=== PATIENT | female | born 1970 | race Caucasian/White ===

== ENCOUNTER 2016-03-16 06:10 | Day surgery (SDC) | payer MEDICARE, MEDICAID ==
[~2016-03-16] VITALS: Ht 154.9 cm; Wt 77.4 kg
[2016-03-16] VITALS (8 sets, daily range): BP systolic 119–134; BP diastolic 66–88; PULSE 74–91; TEMP 97–98
[~2016-03-16 06:10] MED LIST: ABILIFY2 MG PO; ABILIFY5 MG PO; ACZONE TP; AMBIEN 10MG10 MG PO; AMOXICILLIN 8751 TAB PO; BACTRIM DS 8001 TAB PO; BACTRIM PO; BUSPIRONE HCL7.5 MG PO; BYSTOLIC2.5 MG PO; BYSTOLIC5 MG PO; CEFTIN 250250 MG/TAB PO; CELEXA 20MG20 MG/TA1 PO; CELEXA 20MG20 MG/TAB PO; CELEXA20 MG PO; CELLCEPT 5500 MG/TAB PO; CEPHALEXIN500 M1 PO; CIPRO 250MG TA250 MG PO; CLEOCIN HCL300 MG PO; CLOBETASOL0.051 TP; CYCLOSPORINE100 M1 PO; DAPSONE 100MG100 MG PO; DAPSONE 25MG TA25 MG PO; DEXILANT60 MG; DEXILANT60 MG PO; DIFLUCAN150 MG PO; DILAUDID 4MG TAB4 MG PO; DOXYCYCLINE 10100 MG PO; FOSAMAX 70MG TA70 MG PO; GABAPENTIN300 M1 PO; HALCION0.25 MG PO; HUMIRA40 MG/0.1 SC; HYDROCODONE/APAP PO; IRON325 MG PO; LEVAQUIN 750MG750 M1 PO; LEXAPRO20 MG PO; LORTAB 10/500 51 TAB PO; LORTAB 5/500 501 TAB PO; METHOTREXA2.5 MG/TAB PO; NATURAL IRON65 MG PO; NEURONTIN300 MG/CAP PO; NEXIUM 40MG40 MG PO; NORCO 325 MG-101 TAB PO; NORCO 325 MG-51 TAB; NORCO 325 MG-51 TAB PO; NORVASC2.5 MG PO; OSCAL 500MG/VI500 MG PO; PHENERGAN 25 TA25 MG PO; PHENERGAN25 MG RC; PREDNISONE 5MG5 MG PO; PREDNISONE10 MG PO; PREDNISONE20 MG PO; PRIL40 PO; PRILOSEC 20MG20 MG PO; PROAMATINE10 MG PO; SENNA8.6 MG PO; SOMA 350MG350 MG/TAB PO; TETRACYCLINE; TRAMADOL50 MG PO; TUSS PO; VITAMIN D31000 IU PO; XANAX 0.5MG0.5 MG PO; XANAX0.5 MG PO; ZOFRAN 4MG T4 MG/TAB PO; ZOFRAN8 MG PO; [UNRECOGNIZED DRUG - OTHER]; [UNRECOGNIZED DRUG - OTHER] INJ
[2016-03-16] MEDS ORDERED: PREDNISONE10 MG PO (07:58)
[2016-03-16] MEDS ORDERED: PRILOSEC 20MG20 MG PO (07:59)
[2016-03-16] MEDS ORDERED: METHOTREXA2.5 MG/TAB PO (08:06)
[2016-03-16] MEDS ORDERED: CIPRO 250MG TA250 MG PO (08:12)
[2016-03-16] MEDS ORDERED: NORCO 325 MG-51 TAB PO (09:29)
[2016-03-16] MEDS ORDERED: SENOKOT S 50 MG1 TAB PO (09:30)
[2016-03-16] MEDS ORDERED: PYRIDIUM 100MG100 MG PO (09:31)
== END 2016-03-16 13:05 | disposition home or self-care (01) ==
LOC: SDCO 06:10
DX: N20.0 Calculus of kidney (principal); R31.0 Gross hematuria; R93.41 Abnormal radiologic findings on diagnostic imaging of renal pelvis, ureter, or bladder; F17.210 Nicotine dependence, cigarettes, uncomplicated
CPT/HCPCS: C1769; C2617; J0690; J1100; J1720; J2270; J2405; J2704; J3010; J7120; Q9967

== ENCOUNTER 2016-03-21 14:59 | Emergency (ER) | payer MEDICARE, MEDICAID ==
[~2016-03-21] VITALS: Ht 154.9 cm; Wt 77.3 kg
[~2016-03-21 14:59] MED LIST changes: +PYRIDIUM 100MG100 MG PO; +SENOKOT S 50 MG1 TAB PO
[2016-03-21 15:02] VITALS: BP 131/98; TEMP 98.5
[2016-03-21] MEDS ORDERED: NORCO 325 MG-101 TAB PO ×2 (15:12→15:20)
[2016-03-21] MEDS ORDERED: PRILOSEC 20MG20 MG PO (15:20)
[2016-03-21] MEDS ORDERED: ABILIFY2 MG PO (15:20)
[2016-03-21] MEDS ORDERED: NEURONTIN300 MG/CAP PO (15:20)
[2016-03-21] MEDS ORDERED: AMBIEN 10MG10 MG PO (15:21)
[2016-03-21] MEDS ORDERED: XANAX 0.5MG0.5 MG PO (15:21)
[2016-03-21] MEDS ORDERED: BUSPIRONE HCL7.5 MG PO (15:21)
[2016-03-21] MEDS ORDERED: METHOTREXA2.5 MG/TAB PO (15:22)
[2016-03-21] MEDS ORDERED: LEXAPRO20 MG PO (15:22)
[2016-03-21] MEDS ORDERED: HUMIRA40 MG/0.1 SC (15:22)
[2016-03-21] MEDS ORDERED: BYSTOLIC2.5 MG PO (15:22)
[2016-03-21] MEDS ORDERED: CIPRO 250MG TA250 MG PO (15:23)
[2016-03-21] MEDS ORDERED: PREDNISONE20 MG PO (15:23)
[2016-03-21 16:24] VITALS: PULSE 98
== END 2016-03-21 16:24 | disposition home or self-care (01) ==
LOC: COL.ER 14:59
DX: R10.31 Right lower quadrant pain (principal); M79.604 Pain in right leg
CPT/HCPCS: J1170; J2550

== ENCOUNTER 2016-03-26 17:01 | Inpatient (IN) | payer MEDICARE, MEDICAID ==
[~2016-03-26] VITALS: Ht 154.9 cm; Wt 86.1 kg
[2016-03-26] VITALS (54 sets, daily range): BP systolic 103–112; BP diastolic 60–68; PULSE 86–95; TEMP 98.1–98.4; O2SAT 73–100
[2016-03-26 17:43] LABS: MEAN CELL VOLUME 123 fl (80.0-100.0); MEAN CORPUSCULAR HEMOGLOBIN 41 pg (27.0-31.0); MEAN CORPUSCULAR HGB CONC 34 g/dl (33.0-37.0); PLATELET COUNT 347 K/mm3 (130-400); RED BLOOD COUNT 2.91 M/mm3 (4.10-5.30); REDCELL DISTRIBUTION WIDTH-CV 19.4 % (11.5-14.5)
[2016-03-26 17:45] LABS: HEMATOCRIT 35.8 % (37.0-47.0)
[2016-03-26 17:46] LABS: ADD PATHOLOGY DIFF REVIEW NO; WHITE BLOOD COUNT 30.6 K/mm3 (4.8-10.8)
[2016-03-26 17:53] LABS: ADJUSTED CALCIUM 9.1 mg/dL (8.4-10.2); ALBUMIN 4.7 gm/dL (3.5-5.0); BILIRUBIN,TOTAL 1.3 mg/dL (0.0-1.0); CALCIUM 9.7 mg/dL (8.4-10.2); CREATININE, serum 1.05 mg/dL (0.52-1.25); POTASSIUM 5.1 mmol/L (3.4-5.0); TOTAL PROTEIN 8.2 gm/dL (6.4-8.2)
[2016-03-26 18:11] LABS: INFLUENZA B NEGATIVE
[2016-03-26 18:14] LABS: BAND 22 % (0-10); NEUTROPHILS 71 % (42.0-75.2); PLATELET ESTIMATE NORMAL (NORMAL); TOTAL CELLS COUNTED 100
[2016-03-26 18:15] LABS: ANISOCYTOSIS 1+
[2016-03-26 18:46] LABS: PH 7 (5-8); SQUAMOUS EPITHELIAL 0-2 /hpf; URINE APPEARANCE Cloudy; URINE BACTERIA Rare /hpf; URINE BILIRUBIN Negative (NEGATIVE); URINE BLOOD 3+ (NEGATIVE); URINE COLOR Amber; URINE GLUCOSE Negative (NEGATIVE); URINE KETONE Trace (NEGATIVE); URINE UROBILINOGEN Negative (NEGATIVE); URINE WBC >50 /hpf
[2016-03-26] MEDS ORDERED: PREDNISONE20 MG PO (19:56)
[2016-03-27] VITALS (989 sets, daily range): BP systolic 105–125; BP diastolic 64–80; PULSE 85–115; TEMP 97.1–98.2; O2SAT 75–100
[2016-03-27 05:54] LABS: MEAN CELL VOLUME 124 fl (80.0-100.0); MEAN CORPUSCULAR HGB CONC 34 g/dl (33.0-37.0); MEAN PLATELET VOLUME 9.1 fl (7.4-10.4); PLATELET COUNT 287 K/mm3 (130-400); RED BLOOD COUNT 2.28 M/mm3 (4.10-5.30); REDCELL DISTRIBUTION WIDTH-CV 19.5 % (11.5-14.5)
[2016-03-27 06:01] LABS: HEMATOCRIT 28.3 % (37.0-47.0); HEMOGLOBIN 9.5 g/dl (12.5-16.0); MEAN CORPUSCULAR HEMOGLOBIN 42 pg (27.0-31.0)
[2016-03-27 06:02] LABS: ADD PATHOLOGY DIFF REVIEW NO; CALCIUM 8.2 mg/dL (8.4-10.2); CREATININE, serum 0.76 mg/dL (0.52-1.25); POTASSIUM 4.5 mmol/L (3.4-5.0)
[2016-03-27 06:22] LABS: BAND 27 % (0-10); NEUTROPHILS 67 % (42.0-75.2); TOTAL CELLS COUNTED 100
[2016-03-28] VITALS (999 sets, daily range): BP systolic 112–160; BP diastolic 50–95; PULSE 82–103; TEMP 97.9–99.7; O2SAT 86–100
[2016-03-28 08:15] LABS: MEAN CELL VOLUME 122 fl (80.0-100.0); MEAN CORPUSCULAR HGB CONC 33 g/dl (33.0-37.0); MEAN PLATELET VOLUME 9.4 fl (7.4-10.4); PLATELET COUNT 259 K/mm3 (130-400); RED BLOOD COUNT 2.11 M/mm3 (4.10-5.30); REDCELL DISTRIBUTION WIDTH-CV 19.1 % (11.5-14.5)
[2016-03-28 08:26] LABS: ADJUSTED CALCIUM 8.8 mg/dL (8.4-10.2); ALBUMIN 3.1 gm/dL (3.5-5.0); BILIRUBIN,TOTAL 0.6 mg/dL (0.0-1.0); CALCIUM 8.1 mg/dL (8.4-10.2); CREATININE, serum 0.63 mg/dL (0.52-1.25); POTASSIUM 3.3 mmol/L (3.4-5.0); TOTAL PROTEIN 6.2 gm/dL (6.4-8.2)
[2016-03-28 08:43] LABS: HEMATOCRIT 25.8 % (37.0-47.0); HEMOGLOBIN 8.4 g/dl (12.5-16.0); MEAN CORPUSCULAR HEMOGLOBIN 40 pg (27.0-31.0); WHITE BLOOD COUNT 26.4 K/mm3 (4.8-10.8)
[2016-03-28 08:44] LABS: ADD PATHOLOGY DIFF REVIEW NO
[2016-03-28 08:47] LABS: BAND 23 % (0-10); NEUTROPHILS 71 % (42.0-75.2); PLATELET ESTIMATE NORMAL (NORMAL); TOTAL CELLS COUNTED 100
[2016-03-29 02:00] VITALS: BP 134/70; PULSE 90; TEMP 98.8
[2016-03-29 06:04] VITALS: BP 115/56; PULSE 78; TEMP 98
[2016-03-29 06:56] LABS: MEAN CELL VOLUME 119 fl (80.0-100.0); MEAN CORPUSCULAR HGB CONC 34 g/dl (33.0-37.0); MEAN PLATELET VOLUME 9.7 fl (7.4-10.4); PLATELET COUNT 265 K/mm3 (130-400); RED BLOOD COUNT 2.13 M/mm3 (4.10-5.30); REDCELL DISTRIBUTION WIDTH-CV 18.9 % (11.5-14.5)
[2016-03-29 07:05] LABS: HEMATOCRIT 25.4 % (37.0-47.0); HEMOGLOBIN 8.6 g/dl (12.5-16.0); MEAN CORPUSCULAR HEMOGLOBIN 40 pg (27.0-31.0); WHITE BLOOD COUNT 23.7 K/mm3 (4.8-10.8)
[2016-03-29 07:06] LABS: ADD PATHOLOGY DIFF REVIEW NO
[2016-03-29 07:09] LABS: ADJUSTED CALCIUM 8.4 mg/dL (8.4-10.2); BILIRUBIN,TOTAL 0.4 mg/dL (0.0-1.0); CALCIUM 7.6 mg/dL (8.4-10.2); CREATININE, serum 0.46 mg/dL (0.52-1.25); TOTAL PROTEIN 5.9 gm/dL (6.4-8.2)
[2016-03-29 09:04] VITALS: BP 116/46; PULSE 82; TEMP 98.1
[2016-03-29 13:27] LABS: BAND 8 % (0-10); METAMYELOCYTE 1 % (0-0); MYELOCYTE 3 % (0-0)
[2016-03-29 13:29] LABS: ANISOCYTOSIS 2+; OVALOCYTES 1+; PLATELET ESTIMATE NORMAL (NORMAL); TEAR DROP CELLS 1+; TOXIC GRANULATION PRESENT
[2016-03-29 13:31] LABS: NEUTROPHILS 77 % (42.0-75.2); TOTAL CELLS COUNTED 100
[2016-03-29 13:35] VITALS: BP 130/72; PULSE 75; TEMP 97.6
[2016-03-29 16:58] VITALS: BP 134/70; PULSE 78; TEMP 98.1
[2016-03-29 21:40] VITALS: BP 120/86; PULSE 90; TEMP 97.5
[2016-03-30 02:31] VITALS: BP 114/46; PULSE 75; TEMP 97.5
[2016-03-30 04:40] VITALS: BP 106/57; PULSE 66; TEMP 98.2
[2016-03-30 07:48] LABS: MEAN CELL VOLUME 115 fl (80.0-100.0); MEAN CORPUSCULAR HGB CONC 34 g/dl (33.0-37.0); MEAN PLATELET VOLUME 10.1 fl (7.4-10.4); PLATELET COUNT 299 K/mm3 (130-400); RED BLOOD COUNT 2.34 M/mm3 (4.10-5.30); REDCELL DISTRIBUTION WIDTH-CV 18.6 % (11.5-14.5); WHITE BLOOD COUNT 15.9 K/mm3 (4.8-10.8)
[2016-03-30 07:49] LABS: ADD PATHOLOGY DIFF REVIEW NO; HEMOGLOBIN 9.3 g/dl (12.5-16.0); MEAN CORPUSCULAR HEMOGLOBIN 40 pg (27.0-31.0)
[2016-03-30 08:48] LABS: ADJUSTED CALCIUM 8.8 mg/dL (8.4-10.2); ALBUMIN 3.2 gm/dL (3.5-5.0); BILIRUBIN,TOTAL 0.6 mg/dL (0.0-1.0); CALCIUM 8.2 mg/dL (8.4-10.2); CREATININE, serum 0.54 mg/dL (0.52-1.25); TOTAL PROTEIN 6.2 gm/dL (6.4-8.2)
[2016-03-30 08:51] LABS: POTASSIUM 2.8 mmol/L (3.4-5.0)
[2016-03-30 10:13] LABS: BAND 5 % (0-10); NEUTROPHILS 79 % (42.0-75.2); TOTAL CELLS COUNTED 100
[2016-03-30 10:14] VITALS: BP 137/61; PULSE 69; TEMP 97.4
[2016-03-30 10:14] LABS: ANISOCYTOSIS 2+; POLYCHROMASIA 1+; SPHEROCYTE 2+
[2016-03-30 10:15] LABS: HYPERSEGMENTED POLYS PRESENT; HYPOCHROMIA 1+; SCHISTOCYTES 1+
[2016-03-30 14:40] VITALS: BP 127/72; PULSE 72; TEMP 97.7
[2016-03-30] MEDS ORDERED: ZOFRAN 4MG T4 MG/TAB PO (15:29)
== END 2016-03-30 17:09 | disposition home or self-care (01) | DRG 872 ==
LOC: COL.ER 17:01 → SURG 20:00 → ICU 20:00 → IMCU 03-27 21:39 → SURG 03-28 19:41
PROVIDERS: Emergency Medicine; Family Medicine; Internal Medicine; Physician Assistant; Urology
PROC: 0T768DZ Dilation of Right Ureter with Intraluminal Device, Via Natural or Artificial Opening Endoscopic (ICD-10-PCS; principal; 2016-03-26 20:15)
DX: A41.59 Other Gram-negative sepsis (principal); N20.2 Calculus of kidney with calculus of ureter; L88 Pyoderma gangrenosum; B96.4 Proteus (mirabilis) (morganii) as the cause of diseases classified elsewhere; F17.210 Nicotine dependence, cigarettes, uncomplicated; M35.00 Sjogren syndrome, unspecified; E87.6 Hypokalemia
CPT/HCPCS: 99222; 99232-AI; 99233-AI; 99239; A9284; C1769; C2617; J0690; J0696; J0713; J1100; J1170; J1720; J1800; J1885; J2185; J2405; J2543; J2550; J2704; J2710; J2765; J3010; J7030; J7050; J7120; J7512; Q9967

== ENCOUNTER 2016-04-11 05:36 | Day surgery (SDC) | payer MEDICARE, MEDICAID ==
[~2016-04-11] VITALS: Ht 154.9 cm; Wt 76.4 kg
[2016-04-11 06:22] VITALS: BP 133/70; PULSE 87; TEMP 98.3
[2016-04-11] MEDS ORDERED: PREDNISONE10 MG PO (07:10)
[2016-04-11] MEDS ORDERED: NATURAL POTASS595 MG PO (07:49)
[2016-04-11] MEDS ORDERED: LEVAQUIN 5500 MG/TA1 PO ×2 (07:49→08:56)
[2016-04-11 08:27] VITALS: TEMP 98.9
[2016-04-11 08:37] VITALS: BP 112/65; PULSE 76
[2016-04-11 08:40] VITALS: BP 112/65; PULSE 76
[2016-04-11 08:53] VITALS: BP 92/53; PULSE 78
[2016-04-11] MEDS ORDERED: SENOKOT S 50 MG1 TAB PO (08:57)
[2016-04-11] MEDS ORDERED: NORCO 325 MG-51 TAB PO (08:58)
[2016-04-11] MEDS ORDERED: PYRIDIUM 100MG100 MG PO (08:59)
[2016-04-11 09:07] VITALS: BP 112/77; PULSE 74
== END 2016-04-11 09:15 | disposition home or self-care (01) ==
LOC: SDCO 05:36
DX: N20.1 Calculus of ureter (principal); Z86.14 Personal history of Methicillin resistant Staphylococcus aureus infection; Z79.899 Other long term (current) drug therapy; F17.200 Nicotine dependence, unspecified, uncomplicated
CPT/HCPCS: C1769; J0690; J1100; J1720; J2405; J2704; J3010; J7120

== ENCOUNTER 2016-10-19 21:18 | Emergency (ER) | payer MEDICARE, MEDICAID ==
[~2016-10-19] VITALS: Ht 152.4 cm; Wt 79.5 kg
[~2016-10-19 21:18] MED LIST changes: +LEVAQUIN 5500 MG/TA1 PO; +NATURAL POTASS595 MG PO
[2016-10-19 21:20] VITALS: TEMP 98.7
[2016-10-19] MEDS ORDERED: PHENERGAN25 MG RC (21:28)
[2016-10-19] MEDS ORDERED: REGLAN 10MG10 MG/TAB PO (21:28)
[2016-10-19 21:57] LABS: BASO % 0.1 % (0.0-2.0); EOS % 0.2 % (0-4.0); GRAN # 6.7 (1.4-6.5); LYMPH # 1.1 (1.2-3.4); LYMPH % 13.8 % (20.0-51.0); MEAN CELL VOLUME 126 fl (80.0-100.0); MEAN CORPUSCULAR HGB CONC 33 g/dl (33.0-37.0); MEAN PLATELET VOLUME 9.2 fl (7.4-10.4); MONO # 0.2 (0.1-0.6); MONO % 2.2 % (1.7-9.3); PLATELET COUNT 286 K/mm3 (130-400); RED BLOOD COUNT 2.72 M/mm3 (4.10-5.30); REDCELL DISTRIBUTION WIDTH-CV 14.9 % (11.5-14.5); WHITE BLOOD COUNT 8.1 K/mm3 (4.8-10.8)
[2016-10-19] MEDS ORDERED: DEXILANT30 MG PO (22:04)
[2016-10-19 22:11] LABS: ADJUSTED CALCIUM 9.2 mg/dL (8.4-10.2); ALBUMIN 4.9 gm/dL (3.5-5.0); BILIRUBIN,TOTAL 0.9 mg/dL (0.0-1.0); C-REACTIVE PROTEIN 0.6 mg/dL (0.0-0.9); CALCIUM 9.9 mg/dL (8.4-10.2); CREATININE, serum 0.71 mg/dL (0.52-1.25); POTASSIUM 3.9 mmol/L (3.4-5.0); TOTAL PROTEIN 7.4 gm/dL (6.4-8.2)
[2016-10-19 22:12] LABS: HEMATOCRIT 34.3 % (37.0-47.0); HEMOGLOBIN 11.4 g/dl (12.5-16.0); MEAN CORPUSCULAR HEMOGLOBIN 42 pg (27.0-31.0)
[2016-10-19 22:32] LABS: PH 6 (5-8); SQUAMOUS EPITHELIAL None Seen /hpf; URINE APPEARANCE Clear; URINE BACTERIA None Seen /hpf; URINE BILIRUBIN Negative (NEGATIVE); URINE BLOOD Negative (NEGATIVE); URINE COLOR Yellow; URINE GLUCOSE Negative (NEGATIVE); URINE KETONE 1+ (NEGATIVE); URINE RBC 0-2 /hpf; URINE UROBILINOGEN Negative (NEGATIVE); URINE WBC 20-50 /hpf
[2016-10-19] MEDS ORDERED: MACROBID 1100 MG/CAP PO (23:27)
[2016-10-20 00:08] VITALS: BP 119/76; PULSE 97
== END 2016-10-20 00:10 | disposition home or self-care (01) ==
LOC: COL.ER 21:18
PROVIDERS: Family Medicine
DX: N30.00 Acute cystitis without hematuria (principal); R11.2 Nausea with vomiting, unspecified; M35.00 Sjogren syndrome, unspecified; F32.9 Major depressive disorder, single episode, unspecified; L88 Pyoderma gangrenosum
CPT/HCPCS: J0696; J2405; J7030

== ENCOUNTER 2017-09-19 13:24 | Emergency (ER) | payer MEDICARE, MEDICAID ==
[~2017-09-19] VITALS: Ht 154.9 cm; Wt 77.3 kg
[~2017-09-19 13:24] MED LIST changes: +DEXILANT30 MG PO; +MACROBID 1100 MG/CAP PO; +REGLAN 10MG10 MG/TAB PO
[2017-09-19 13:26] VITALS: TEMP 98.1
[2017-09-19 14:02] LABS: BASO % 0.2 % (0.0-2.0); EOS % 0.1 % (0-4.0); GRAN # 7.7 (1.4-6.5); GRAN % 82.2 % (42.2-75.2); HEMATOCRIT 40.6 % (37.0-47.0); HEMOGLOBIN 13.8 g/dl (12.5-16.0); LYMPH # 1.3 (1.2-3.4); LYMPH % 14.1 % (20.0-51.0); MEAN CELL VOLUME 127 fl (80.0-100.0); MEAN CORPUSCULAR HEMOGLOBIN 43 pg (27.0-31.0); MEAN CORPUSCULAR HGB CONC 34 g/dl (33.0-37.0); MEAN PLATELET VOLUME 9.5 fl (7.4-10.4); MONO # 0.3 (0.1-0.6); MONO % 3.2 % (1.7-9.3); PLATELET COUNT 275 K/mm3 (130-400); RED BLOOD COUNT 3.19 M/mm3 (4.10-5.30)
[2017-09-19 14:13] LABS: ALBUMIN 4.8 gm/dL (3.5-5.0); BILIRUBIN,TOTAL 0.8 mg/dL (0.0-1.0); C-REACTIVE PROTEIN 0.7 mg/dL (0.0-0.9); CALCIUM 10.3 mg/dL (8.4-10.2); CREATININE, serum 0.78 mg/dL (0.52-1.25); POTASSIUM 4.4 mmol/L (3.4-5.0); TOTAL PROTEIN 7.7 gm/dL (6.4-8.2)
[2017-09-19] MEDS ORDERED: CARAFATE 1GM1 G PO (14:21)
[2017-09-19] MEDS ORDERED: PHENERGAN 25 TA25 MG PO (14:21)
[2017-09-19] MEDS ORDERED: ZOFRAN ODT4 MG PO (14:21)
[2017-09-19 15:11] LABS: COLLECTION METHOD CLEAN CATCH
[2017-09-19 16:05] LABS: MUCOUS Present /lpf; PH 6 (5-8); SQUAMOUS EPITHELIAL 0-2 /hpf; URINE APPEARANCE Hazy; URINE BACTERIA None Seen /hpf; URINE BILIRUBIN Negative (NEGATIVE); URINE BLOOD 1+ (NEGATIVE); URINE COLOR Yellow; URINE GLUCOSE Negative (NEGATIVE); URINE KETONE 1+ (NEGATIVE); URINE LEUKOCYTE ESTERASE Trace (NEGATIVE); URINE NITRATE Negative (NEGATIVE); URINE PROTEIN(semi-quant) 1+ (NEGATIVE); URINE UROBILINOGEN Negative (NEGATIVE)
[2017-09-19] MEDS ORDERED: CYCLOSPORINE100 MG PO ×2 (16:06)
[2017-09-19] MEDS ORDERED: CEFTIN500 MG PO (16:08)
[2017-09-19] MEDS ORDERED: REMERON 15M15 MG/TA1 PO (16:09)
[2017-09-19] MEDS ORDERED: PREDNISONE20 MG PO (16:10)
[2017-09-19] MEDS ORDERED: MULTI VITAMINS1 TAB PO (16:11)
[2017-09-19] MEDS ORDERED: CRANBERRY FRUI405 MG PO (16:11)
[2017-09-19] MEDS ORDERED: STOOL SOFTENER100 M2 PO (16:11)
[2017-09-19 16:22] VITALS: BP 106/81; PULSE 80
== END 2017-09-19 16:24 | disposition home or self-care (01) ==
LOC: COL.ER 13:24
PROVIDERS: Emergency Medicine
DX: K27.9 Peptic ulcer, site unspecified, unspecified as acute or chronic, without hemorrhage or perforation (principal); F17.210 Nicotine dependence, cigarettes, uncomplicated; Z90.89 Acquired absence of other organs
CPT/HCPCS: C9113; J2405; J7030

== ENCOUNTER 2017-10-20 07:07 | Emergency (ER) | payer MEDICARE, MEDICAID ==
[~2017-10-20] VITALS: Ht 154.9 cm; Wt 77.3 kg
[~2017-10-20 07:07] MED LIST changes: +CARAFATE 1GM1 G PO; +CEFTIN500 MG PO; +CRANBERRY FRUI405 MG PO; +CYCLOSPORINE100 MG PO; +MULTI VITAMINS1 TAB PO; +REMERON 15M15 MG/TA1 PO; +STOOL SOFTENER100 M2 PO; +ZOFRAN ODT4 MG PO
[2017-10-20 07:11] VITALS: TEMP 97.9
[2017-10-20 07:48] LABS: COLLECTION METHOD CLEAN CATCH
[2017-10-20 07:52] LABS: BASO % 0.2 % (0.0-2.0); EOS % 0.3 % (0-4.0); GRAN # 5.6 (1.4-6.5); GRAN % 61.4 % (42.2-75.2); HEMATOCRIT 42.3 % (37.0-47.0); HEMOGLOBIN 14.2 g/dl (12.5-16.0); LYMPH # 2.4 (1.2-3.4); LYMPH % 26.4 % (20.0-51.0); MEAN CELL VOLUME 126 fl (80.0-100.0); MEAN CORPUSCULAR HEMOGLOBIN 42 pg (27.0-31.0); MEAN CORPUSCULAR HGB CONC 34 g/dl (33.0-37.0); MEAN PLATELET VOLUME 9.3 fl (7.4-10.4); MONO % 11.3 % (1.7-9.3); PLATELET COUNT 364 K/mm3 (130-400); RED BLOOD COUNT 3.35 M/mm3 (4.10-5.30); REDCELL DISTRIBUTION WIDTH-CV 11.6 % (11.5-14.5)
[2017-10-20 08:00] LABS: BILIRUBIN,TOTAL 0.7 mg/dL (0.0-1.0); CREATININE, serum 0.98 mg/dL (0.52-1.25); MUCOUS Present /lpf; PH 6 (5-8); POTASSIUM 4.4 mmol/L (3.4-5.0); SQUAMOUS EPITHELIAL None Seen /hpf; TOTAL PROTEIN 8.2 gm/dL (6.4-8.2); URINE APPEARANCE Hazy; URINE BACTERIA None Seen /hpf; URINE BILIRUBIN Negative (NEGATIVE); URINE BLOOD 3+ (NEGATIVE); URINE COLOR Yellow; URINE GLUCOSE Negative (NEGATIVE); URINE KETONE 1+ (NEGATIVE); URINE LEUKOCYTE ESTERASE Trace (NEGATIVE); URINE NITRATE Negative (NEGATIVE); URINE PROTEIN(semi-quant) 2+ (NEGATIVE); URINE RBC >50 /hpf; URINE UROBILINOGEN Negative (NEGATIVE)
[2017-10-20] MEDS ORDERED: ZOFRAN 4MG T4 MG/TAB PO (09:37)
[2017-10-20 09:50] VITALS: BP 125/68; PULSE 90
== END 2017-10-20 09:52 | disposition home or self-care (01) ==
LOC: COL.ER 07:07
PROVIDERS: Nurse Practitioner Primary Care
DX: E86.0 Dehydration (principal); R11.10 Vomiting, unspecified; R19.7 Diarrhea, unspecified; F17.210 Nicotine dependence, cigarettes, uncomplicated; F32.9 Major depressive disorder, single episode, unspecified; F41.9 Anxiety disorder, unspecified; Z90.89 Acquired absence of other organs; Z87.442 Personal history of urinary calculi
CPT/HCPCS: J1885; J2405; J7030; Q9967

== ENCOUNTER → 2017-12-26 | Outpatient (CLI) | payer MEDICARE, MEDICAID ==
[~2017-12-26] MED LIST changes: +BUSPAR DIVIDOSE15 MG PO; +HUMIRA40 MG/0.8 SQ
== END ==
LOC: COL.RAD 11:19
DX: R47.81 Slurred speech (principal); Z98.890 Other specified postprocedural states; Z96.21 Cochlear implant status

== ENCOUNTER 2018-01-06 13:15 | Outpatient (CLI) | payer MEDICARE, MEDICAID ==
[~2018-01-06] VITALS: Ht 154.9 cm; Wt 73.7 kg
[~2018-01-06 13:15] MED LIST changes: -BUSPAR DIVIDOSE15 MG PO
[2018-01-06] MEDS ORDERED: BUSPAR DIVIDOSE15 MG PO (13:32)
[2018-01-06 13:35] VITALS: BP 127/76; PULSE 82
[2018-01-06 14:20] VITALS: BP 113/62; PULSE 71
[2018-01-06 14:23] VITALS: BP 113/62; PULSE 71
[2018-01-06 15:03] LABS: GLUCOSE,CSF 59 mg/dL (40-70); TOTAL PROTEIN,CSF 80 mg/dL (15-45)
[2018-01-06 15:17] LABS: CSF APPEARANCE CLEAR; CSF COLOR COLORLESS
[2018-01-06 15:18] LABS: CSF MONONUCLEAR 90 % (70-100); CSF POLYMORPHONUCLEAR 10 % (0-6); CSF RBC 600 /mm3 (0-0)
== END 2018-01-06 15:42 | disposition home or self-care (01) ==
LOC: COL.RAD 13:15
PROVIDERS: Family Medicine
DX: R47.81 Slurred speech (principal)

== ENCOUNTER 2018-01-10 09:49 | Outpatient (CLI) | payer MEDICARE, MEDICAID ==
[~2018-01-10] VITALS: Ht 154.9 cm; Wt 73.5 kg
[~2018-01-10 09:49] MED LIST changes: +BUSPAR DIVIDOSE15 MG PO
[2018-01-10 10:42] VITALS: BP 130/75; PULSE 64; TEMP 97.6
== END 2018-01-10 14:37 | disposition home or self-care (01) ==
LOC: EUO 09:49
DX: G97.1 Other reaction to spinal and lumbar puncture (principal)

== ENCOUNTER 2018-02-13 09:00 | Outpatient (RCR) | payer MEDICARE, MEDICAID ==
[2018-02-10 09:46] VITALS: BP 106/61; PULSE 80; TEMP 98.3
[2018-02-11 09:04] VITALS: BP 119/59; PULSE 77; TEMP 98.2
[2018-02-12 09:09] VITALS: BP 123/63; PULSE 73; TEMP 98
[~2018-02-13] VITALS: Ht 154.9 cm; Wt 73.8 kg
[2018-02-13 09:00] VITALS: BP 134/77; PULSE 73; TEMP 97.5
[~2018-02-13 09:00] MED LIST changes: +TOPROL XL 25MG25 MG PO; +ZOFRAN ODT8 MG PO
== END 2018-02-13 10:26 | disposition home or self-care (01) ==
LOC: EUO 09:00
DX: N39.0 Urinary tract infection, site not specified (principal)
CPT/HCPCS: J1956

== ENCOUNTER 2018-03-06 13:13 | Day surgery (SDC) | payer MEDICARE, MEDICAID ==
[2018-03-06] VITALS (7 sets, daily range): BP systolic 132–143; BP diastolic 69–80; PULSE 71–79; TEMP 97–97.9
[~2018-03-06] VITALS: Ht 154.9 cm; Wt 75.8 kg
--- NOTE | 2018-03-06 18:30 | NUR ---
Patient arrived to the floor at 1800. She has been able to void and ate some jello. She knows she is going home tonight. Denies pain. Stated having mild burning with voiding. No complaints of nausea. Urine was pink/red, no clots noted. Explained will be this way for a while. Patient stated she has been throught this routine before. No other changes at this time. Call light within reach.
--- NOTE | 2018-03-06 19:58 | NUR ---
Patient in bed resting. Alert and oriented x3. Family at bedside. Shift assessment complete. Discharge instructions provided to patient. Educated patien on medications. Prescriptions provided. Educated patient on signs and symptoms of infection and when to call provider. Patient verbalized understanding. INT to right forarm discontinued, tip intact. Tolerated procedure well. Patient ambulated out with surgical staff.
== END 2018-03-06 19:50 | disposition home or self-care (01) ==
LOC: SDCO 13:13 → SURG 18:00 → SDCO 19:50
DX: N20.1 Calculus of ureter (principal); F17.210 Nicotine dependence, cigarettes, uncomplicated; I10 Essential (primary) hypertension; K21.9 Gastro-esophageal reflux disease without esophagitis; G89.29 Other chronic pain; F32.9 Major depressive disorder, single episode, unspecified; F41.9 Anxiety disorder, unspecified; D64.9 Anemia, unspecified; Z86.14 Personal history of Methicillin resistant Staphylococcus aureus infection; Z88.1 Allergy status to other antibiotic agents; Z88.8 Allergy status to other drugs, medicaments and biological substances; Z88.2 Allergy status to sulfonamides; Z79.51 Long term (current) use of inhaled steroids
CPT/HCPCS: OP; C1769; C1894; C2617; J0690; J1100; J1720; J2704; J3010; J7120

== ENCOUNTER → 2018-10-06 | Outpatient (CLI) | payer MEDICARE, MEDICAID | LOC: COL.RAD 07:51 | DX: N30.20 Other chronic cystitis without hematuria (principal) ==

== ENCOUNTER 2018-11-27 15:40 | Outpatient (CLI) | payer MEDICARE, MEDICAID ==
[~2018-11-27] VITALS: Ht 154.9 cm; Wt 69.3 kg
[2018-11-27 16:00] VITALS: BP 120/55; PULSE 86; TEMP 97.8
== END 2018-11-27 16:10 | disposition home or self-care (01) ==
LOC: EUO 15:40
DX: N39.0 Urinary tract infection, site not specified (principal)

== ENCOUNTER 2018-12-08 10:56 | Outpatient (CLI) | payer MEDICARE, MEDICAID ==
[~2018-12-08] VITALS: Ht 154.9 cm; Wt 68.0 kg
[2018-12-08 11:50] VITALS: BP 88/51; PULSE 81; TEMP 98.4
[2018-12-08 12:05] LABS: BASO % 0.2 % (0.0-2.0); EOS % 0.1 % (0-4.0); GRAN # 10.6 (1.4-6.5); GRAN % 86.2 % (42.2-75.2); HEMOGLOBIN 11.2 g/dl (12.5-16.0); LYMPH # 0.9 (1.2-3.4); LYMPH % 7.2 % (20.0-51.0); MEAN CELL VOLUME 135 fl (80.0-100.0); MEAN CORPUSCULAR HEMOGLOBIN 43 pg (27.0-31.0); MEAN CORPUSCULAR HGB CONC 32 g/dl (33.0-37.0); MONO # 0.6 (0.1-0.6); MONO % 4.9 % (1.7-9.3); PLATELET COUNT 239 K/mm3 (130-400); REDCELL DISTRIBUTION WIDTH-CV 13.2 % (11.5-14.5)
[2018-12-08 12:24] LABS: ALBUMIN 3.8 gm/dL (3.5-5.0); BILIRUBIN,TOTAL 0.4 mg/dL (0.0-1.0); CALCIUM 9.6 mg/dL (8.4-10.2); CREATININE, serum 1.15 (0.52-1.25); POTASSIUM 4.4 mmol/L (3.4-5.0); TOTAL PROTEIN 6.7 gm/dL (6.4-8.2)
[2018-12-08 13:10] VITALS: BP 94/47; PULSE 83
[2018-12-08 14:38] VITALS: BP 113/49; PULSE 83; TEMP 97.8
[2018-12-09] MEDS ORDERED: PHENERGAN 25 TA25 MG PO (10:00)
== END 2018-12-08 17:15 | disposition home or self-care (01) ==
LOC: EUO 10:56
PROVIDERS: Family Medicine
DX: E86.0 Dehydration (principal)
CPT/HCPCS: J7030

== ENCOUNTER 2018-12-09 09:33 | Inpatient (IN) | payer MEDICARE, MEDICAID ==
[~2018-12-09] VITALS: Ht 154.9 cm; Wt 67.7 kg
[2018-12-09] MEDS ORDERED: PHENERGAN 25 TA25 MG PO (10:00)
[2018-12-09 10:17] LABS: BASO % 0.1 % (0.0-2.0); EOS % 0.1 % (0-4.0); GRAN # 11.4 (1.4-6.5); GRAN % 82.8 % (42.2-75.2); HEMATOCRIT 38.3 % (37.0-47.0); HEMOGLOBIN 12.8 g/dl (12.5-16.0); LYMPH # 1.2 (1.2-3.4); LYMPH % 8.7 % (20.0-51.0); MEAN CORPUSCULAR HEMOGLOBIN 43 pg (27.0-31.0); MEAN CORPUSCULAR HGB CONC 33 g/dl (33.0-37.0); MEAN PLATELET VOLUME 9.4 fl (7.4-10.4); MONO % 7.1 % (1.7-9.3); PLATELET COUNT 291 K/mm3 (130-400); RED BLOOD COUNT 2.97 M/mm3 (4.10-5.30); REDCELL DISTRIBUTION WIDTH-CV 12.8 % (11.5-14.5)
[2018-12-09 10:37] LABS: MEAN CELL VOLUME 129 fl (80.0-100.0)
[2018-12-09 10:40] LABS: ALBUMIN 4.4 gm/dL (3.5-5.0); BILIRUBIN,TOTAL 0.5 mg/dL (0.0-1.0); CALCIUM 10.1 mg/dL (8.4-10.2); CREATININE, serum 0.72 (0.52-1.25); POTASSIUM 3.9 mmol/L (3.4-5.0); TOTAL PROTEIN 7.9 gm/dL (6.4-8.2)
[2018-12-09 10:54] LABS: MUCOUS Present /lpf; PH 6 (5-8); SQUAMOUS EPITHELIAL 0-2 /hpf; URINE APPEARANCE Cloudy; URINE BACTERIA Rare /hpf; URINE BILIRUBIN Negative (NEGATIVE); URINE BLOOD 3+ (NEGATIVE); URINE COLOR Yellow; URINE GLUCOSE Negative (NEGATIVE); URINE KETONE 1+ (NEGATIVE); URINE LEUKOCYTE ESTERASE 2+ (NEGATIVE); URINE NITRATE Negative (NEGATIVE); URINE PROTEIN(semi-quant) 2+ (NEGATIVE); URINE UROBILINOGEN Negative (NEGATIVE)
[2018-12-09 10:56] LABS: C-REACTIVE PROTEIN 21.2 mg/dL (0.0-0.9)
[2018-12-09 11:20] LABS: ACETAMINOPHEN < 10 ug/mL (10-30); SALICYLATE < 1.0 mg/dL
[2018-12-09 11:38] LABS: COLLECTION METHOD CLEAN CATCH
--- NOTE | 2018-12-09 13:15 | NUR ---
arrived on unit from ED per WC, assisted over and into bed, at bedside, requesting something to drink and explained to her she can't have anything to eat or drink, verbalizes understanding, IV infusing per gravity to IV in right hand,
[2018-12-09 13:28] VITALS: BP 125/61; PULSE 91; TEMP 98.2
--- NOTE | 2018-12-09 15:00 | NUR ---
resting in bed, denies needs, Dr Malone was in to see patient
--- NOTE | 2018-12-09 15:30 | NUR ---
afmission assessment completed. Dr Marte in to see patient
--- NOTE | 2018-12-09 15:47 | NUR ---
Dr Olson notified of consult
[2018-12-09 16:06] VITALS: BP 133/64; PULSE 97; TEMP 98.7
[2018-12-09 16:34] LABS: PROLACTIN 8.1 ng/mL (3.0-18.6)
[2018-12-09 16:48] LABS: THYROID STIMULATING HORMONE 0.42 uIU/mL (0.465-4.680)
--- NOTE | 2018-12-09 17:09 | NUR ---
resting in bed and denies needs
--- NOTE | 2018-12-09 19:08 | NUR ---
bedside shift report given to MONI Reynaga
[2018-12-09 20:00] VITALS: BP 124/70; PULSE 92; TEMP 98.3
[2018-12-09 23:13] VITALS: BP 132/59; PULSE 103; TEMP 98
--- NOTE | 2018-12-10 02:04 | NUR ---
PATIENT DOING WELL TONIGHT. IV TO R HAND LEAKING AND DC'D. NEW IV STARTED, 20 G R WRIST, FLUSHES EASILY. SEE ASSESSMENT. DENIES PAIN. STATES SHE IS HAVING MILD NAUSEA, DENIES NEED FOR ANTIEMETIC. WARM BLANKET GIVEN TO PATIENT. NO FURTHER NEEDS AT THIS TIME.
[2018-12-10 03:22] VITALS: BP 115/47; PULSE 73; TEMP 97.9
[2018-12-10 06:15] LABS: BASO % 0.1 % (0.0-2.0); EOS % 0.1 % (0-4.0); GRAN # 9.9 (1.4-6.5); GRAN % 79.4 % (42.2-75.2); HEMOGLOBIN 11.1 g/dl (12.5-16.0); LYMPH # 1.4 (1.2-3.4); LYMPH % 11.3 % (20.0-51.0); MEAN CELL VOLUME 127 fl (80.0-100.0); MEAN CORPUSCULAR HEMOGLOBIN 42 pg (27.0-31.0); MEAN CORPUSCULAR HGB CONC 33 g/dl (33.0-37.0); MEAN PLATELET VOLUME 9.7 fl (7.4-10.4); PLATELET COUNT 286 K/mm3 (130-400); RED BLOOD COUNT 2.66 M/mm3 (4.10-5.30); REDCELL DISTRIBUTION WIDTH-CV 12.7 % (11.5-14.5)
[2018-12-10 06:16] LABS: HEMATOCRIT 33.8 % (37.0-47.0)
[2018-12-10 06:30] LABS: CALCIUM 9.6 mg/dL (8.4-10.2); CREATININE, serum 0.63 (0.52-1.25); POTASSIUM 3.1 mmol/L (3.4-5.0)
[2018-12-10 07:30] VITALS: BP 132/66; PULSE 157; TEMP 98.3
--- NOTE | 2018-12-10 08:00 | NUR ---
PT ALERT AND ORIENTED X4. PT DENIES PAIN AND NAUSEA AT THIS TIME. PT STATES SHE DID HAVE AN EPISODE OF GREEN DIARRHEA, MODERATE AMT AN HOUR PRIOR BUT HAS NOT HAD ANY NAUSEA/VOMITING. PT'S PULSE IS TACHYCARDIC BUT PT STATES IS USUAL FOR HER WHEN SHE IS PLACED ON ORAL STEROIDS. RESTING HR IS 97BPM. PT HAS DRESSING TO RIGHT RING FINGER D/T RECENT DEBRIDEMENT. DRESSING DRY AND INTACT. NO EDEMA NOTED.
[2018-12-10 11:49] VITALS: BP 130/67; PULSE 81; TEMP 98
--- NOTE | 2018-12-10 15:37 | NUR ---
composition siding worker attended clinical rounds. Patient lives at home with spouse and plans to return there upon discharge. Patient has been independent with activities of daily living. Patient's primary care provider is Dr Celaya.
[2018-12-10 15:53] LABS: CARCINOEMBRYONIC ANTIGEN 2.9 ng/mL (0.0-5.0)
[2018-12-10 16:00] VITALS: BP 125/67; PULSE 75; TEMP 98.2
[2018-12-10 17:19] LABS: CA-125 14.2 U/mL (0.0-35.0)
--- NOTE | 2018-12-10 20:00 | NUR ---
Report received from Tia MONTENEGRO. Patient rests in bed and at bedside. Encouraged to call when ready to have nurse assist with barrier cream to buttucks for redness and burning. Snack of pudding given. Denies nausea or vomiting. Has had 3 small liquid green stools this shift. Cdif results negative.
[2018-12-10 20:24] VITALS: BP 132/78; PULSE 71; TEMP 97.4
--- NOTE | 2018-12-10 22:00 | NUR ---
Barrier cream applied twice to inner buttucks and patient reports helpful. Ambulates in room then rests back in bed. left for the night.
[2018-12-11] VITALS (7 sets, daily range): BP systolic 109–128; BP diastolic 52–84; PULSE 75–88; TEMP 97.6–98.6
--- NOTE | 2018-12-11 03:30 | NUR ---
Patient reports skin inner buttucks now bleeding/very sore. Barrier cream applied. Reviewed possibility that may be yeast in nature and encouraged yogurt for breakfast and may need antifungal/yeast ointment instead. No bleeding noted by nurse at this time.
--- NOTE | 2018-12-11 06:22 | NUR ---
Patient rests with eyes closed. Respirations with ease.
--- NOTE | 2018-12-11 08:00 | NUR ---
UPON ENTRY TO ROOM THE PATIENT IS RESTING IN BED. PATIENT IS A&OX4. VSS. TELE IN PLACE. BOWEL SOUNDS ACTIVE ALL FOUR QUADRANTS. PATIENT TOLERATING DIET WITHOUT ANY COMPLAINTS OF N/V. PATIENT REPORTS MULTIPLE EPISODES OF DIARRHEA WHICH WERE UNOBSERVED BY THIS NURSE. POSITIVE PEDAL PULSES EQUAL BILATERALLY. RIGHT RING FINGER DRESSED WITH A GAUZE AND BANDAID DRESSING AND IS CD&I. RIGHT WRIST TO INT. CALL LIGHT WITHIN REACH. PATIENT DENIES ANY OTHER NEEDS AT THIS TIME.
[2018-12-11 08:09] LABS: CREATININE, serum 0.73 (0.52-1.25); MAGNESIUM 1.9 mg/dL (1.6-2.3)
[2018-12-11 08:12] LABS: BASO % 0.2 % (0.0-2.0); EOS % 0.2 % (0-4.0); GRAN # 9.3 (1.4-6.5); GRAN % 76.8 % (42.2-75.2); HEMOGLOBIN 11.8 g/dl (12.5-16.0); LYMPH # 1.5 (1.2-3.4); LYMPH % 12.7 % (20.0-51.0); MEAN CELL VOLUME 124 fl (80.0-100.0); MEAN CORPUSCULAR HEMOGLOBIN 42 pg (27.0-31.0); MEAN CORPUSCULAR HGB CONC 34 g/dl (33.0-37.0); MEAN PLATELET VOLUME 9.4 fl (7.4-10.4); MONO # 1.1 (0.1-0.6); MONO % 9.2 % (1.7-9.3); PLATELET COUNT 265 K/mm3 (130-400); RED BLOOD COUNT 2.83 M/mm3 (4.10-5.30); REDCELL DISTRIBUTION WIDTH-CV 12.2 % (11.5-14.5)
[2018-12-11 08:15] LABS: HEMATOCRIT 35.2 % (37.0-47.0)
--- NOTE | 2018-12-11 08:58 | NUR ---
coke worker met with patient and obtained copies of insurance cards. Angelina, financial counselor is confirming validity of insurance. Patient states that her insurances cover the cost of her medications. Patient plans to return home and is hopeful that is today. Patient lives in a ranch style house and has been independent. Patient stated she broke her foot a few weeks ago and usually spends most of the day with her foot elevated. Patient has a cane and a walking boot in her room. Patient stated that she does not have advance directives. Worker provided a copy of a living will and durable power of burr sander for health care.
--- NOTE | 2018-12-11 09:58 | NUR ---
Initial visit; Patient thanked Event Staff for looking in on her and wishing her well. Per request Event Staff called [employer] Bag Machine Tender and left a message regarding her hospitalization.
[2018-12-11] MEDS ORDERED: OMNICEF 300MG300 MG PO ×2 (12:54)
[2018-12-11] MEDS ORDERED: K-TAB20 PO ×2 (12:57)
--- NOTE | 2018-12-11 15:10 | NUR ---
PATIENT GIVEN PRN DOSE OF IMMODIUM FOR DIARRHEA.
--- NOTE | 2018-12-11 15:21 | NUR ---
PATIENT STATES THAT SHE FEELS LIKE SHE'S ABOUT TO CRAWL OUT OF HER SKIN. PATIENT REQUESTED HER PRN ANXIETY MEDICATION. PATIENT GIVEN PRN PO XANAX. PATIENT DENIES ANY OTHER NEEDS AT THIS TIME.
--- NOTE | 2018-12-11 19:28 | NUR ---
REPORT GIVEN TO MONI HIGGINS.
--- NOTE | 2018-12-11 20:17 | NUR ---
Resting in bed. Assessment complete. Lungs clear. Heart sounds normal. Bowels active x4. Pulses strong throughout. No edema noted. INT right wrist flushed without complications. Denies pain. Denies needs. Call light in reach.
--- NOTE | 2018-12-11 22:29 | NUR ---
Resting in bed asleep. Call light in reach.
--- NOTE | 2018-12-11 23:51 | NUR ---
Sitting at bedside. Requested jello. Provided to patient. Denies other needs at this time. Call light in reach.
--- NOTE | 2018-12-12 02:10 | NUR ---
Resting in bed. Denies needs. Call light in reach.
[2018-12-12 03:26] VITALS: BP 122/73; PULSE 75; TEMP 98.3
--- NOTE | 2018-12-12 06:14 | NUR ---
Patient had uneventful night. No episodes of diarrhea. Denies needs this AM. Call light in reach.
--- NOTE | 2018-12-12 06:57 | NUR ---
Report given to MONI Flor
--- NOTE | 2018-12-12 08:00 | NUR ---
PATIENT IS RESTING IN BED. PATIENT IS A&OX4. VSS. BOWEL SOUNDS ACTIVE ALL FOUR QUADRANTS. PATIENT TOLERATING DIET WITHOUT ANY COMPLAINTS OF N/V. POSITIVE PEDAL PULSES EQUAL BILATERALLY. CALL LIGHT WITHIN REACH. PATIENT DENIES ANY OTHER NEEDS AT THIS TIME.
[2018-12-12 08:34] LABS: BASO % 0.2 % (0.0-2.0); EOS % 0.4 % (0-4.0); GRAN # 6.8 (1.4-6.5); GRAN % 69.7 % (42.2-75.2); HEMOGLOBIN 11.6 g/dl (12.5-16.0); LYMPH # 1.7 (1.2-3.4); MEAN CELL VOLUME 126 fl (80.0-100.0); MEAN CORPUSCULAR HEMOGLOBIN 43 pg (27.0-31.0); MEAN CORPUSCULAR HGB CONC 34 g/dl (33.0-37.0); MEAN PLATELET VOLUME 9.6 fl (7.4-10.4); MONO # 1.1 (0.1-0.6); MONO % 11.6 % (1.7-9.3); PLATELET COUNT 243 K/mm3 (130-400); RED BLOOD COUNT 2.73 M/mm3 (4.10-5.30); REDCELL DISTRIBUTION WIDTH-CV 12.5 % (11.5-14.5)
[2018-12-12 08:36] LABS: HEMATOCRIT 34.5 % (37.0-47.0)
[2018-12-12 08:47] LABS: CALCIUM 10.2 mg/dL (8.4-10.2); CREATININE, serum 0.68 (0.52-1.25); POTASSIUM 3.5 mmol/L (3.4-5.0)
[2018-12-12 08:59] VITALS: BP 109/52; PULSE 95; TEMP 97.5
[2018-12-12] MEDS ORDERED: AMOXICILLIN 8751 TAB PO (09:21)
[2018-12-12] MEDS ORDERED: FLAGYL500 MG PO (09:21)
[2018-12-12] MEDS ORDERED: IMODIUM A-D2 MG PO (09:21)
--- NOTE | 2018-12-12 11:40 | NUR ---
Follow-up visit; intended to check to make sure patient's Production Supervisor Off Shift had gotten the message of her hospitalization. Patient was quite happy and stated her executive coach had received Preschool Substitute Teacher's message and visited her yesterday afternoon.
[2018-12-12 12:55] VITALS: BP 104/44; PULSE 79; TEMP 97.7
--- NOTE | 2018-12-12 14:17 | NUR ---
DISCHARGE INSTRUCTIONS REVIEWED WITH PATIENT AND . ALL QUESTIONS ANSWERED. PATIENT PERSONAL BELONGINGS GATHERED.
--- NOTE | 2018-12-12 14:22 | NUR ---
PATIENT TAKEN TO PERSONAL VEHICLE VIA WHEELCHAIR BY SURGICAL STAFF. PATIENT DISCHARGED.
== END 2018-12-12 14:22 | disposition home or self-care (01) | DRG 392 ==
LOC: COL.ER 09:33 → SURG 12:17
PROVIDERS: Emergency Medicine; Nurse Practitioner Family; Obstetrics & Gynecology; Physician Assistant; ADMIT Family Medicine
DX: K52.9 Noninfective gastroenteritis and colitis, unspecified (principal); E87.2 Acidosis; N39.0 Urinary tract infection, site not specified; F32.9 Major depressive disorder, single episode, unspecified; H91.90 Unspecified hearing loss, unspecified ear; S92.902D Unspecified fracture of left foot, subsequent encounter for fracture with routine healing; I44.1 Atrioventricular block, second degree; G47.00 Insomnia, unspecified; F41.9 Anxiety disorder, unspecified; D89.89 Other specified disorders involving the immune mechanism, not elsewhere classified; Z96.21 Cochlear implant status; E87.6 Hypokalemia; Z79.891 Long term (current) use of opiate analgesic; F17.210 Nicotine dependence, cigarettes, uncomplicated; Z88.2 Allergy status to sulfonamides; Z88.8 Allergy status to other drugs, medicaments and biological substances
CPT/HCPCS: 99232-AI; 99233-AI; 99239; A4216; G0378; J0696; J1650; J2550; J2920; J7120; Q9967

== ENCOUNTER → 2019-08-04 | Outpatient (CLI) | payer MEDICARE, MEDICAID ==
[~2019-08-04] MED LIST changes: +FLAGYL500 MG PO; +IMODIUM A-D2 MG PO; +K-TAB20 PO; +OMNICEF 300MG300 MG PO
== END ==
LOC: COL.RAD 09:00
DX: N20.0 Calculus of kidney (principal); N28.1 Cyst of kidney, acquired; N30.20 Other chronic cystitis without hematuria
CPT/HCPCS: Q9967

== ENCOUNTER 2019-10-23 13:00 | Outpatient (RCR) | payer MEDICARE, MEDICAID ==
[2019-10-19 13:10] VITALS: BP 102/69; PULSE 72; TEMP 98.4
--- NOTE | 2019-10-19 13:59 | NUR ---
INT to left wrist padded with 2x2 gauze and site wrapped with coban, left in place for IV antibiotic infusion tomorrow. Site cares discussed. Pt expresses understanding. Pt ambulates from dept with steady gait.
[2019-10-20 14:13] VITALS: BP 99/67; PULSE 76; TEMP 98.7
[2019-10-21 12:51] VITALS: BP 115/81; PULSE 80; TEMP 97.8
[2019-10-22 13:19] VITALS: BP 115/55; PULSE 74; TEMP 98.6
[~2019-10-23] VITALS: Ht 154.9 cm; Wt 72.3 kg
[2019-10-23 12:00] VITALS: BP 116/78; PULSE 79; TEMP 98.4
[~2019-10-23 13:00] MED LIST changes: +FLEXERIL 1010 MG/TAB PO
[2019-10-23 13:22] LABS: COLLECTION METHOD CLEAN CATCH
[2019-10-23 14:28] LABS: MUCOUS Present /lpf; PH 6 (5-8); URINE APPEARANCE Cloudy; URINE BACTERIA None Seen /hpf; URINE BILIRUBIN Negative (NEGATIVE); URINE BLOOD 3+ (NEGATIVE); URINE CALCIUM OXALATE CRYSTAL Present /hpf; URINE COLOR Yellow; URINE GLUCOSE Negative (NEGATIVE); URINE KETONE Negative (NEGATIVE); URINE LEUKOCYTE ESTERASE 1+ (NEGATIVE); URINE NITRATE Negative (NEGATIVE); URINE PROTEIN(semi-quant) 2+ (NEGATIVE); URINE RBC >50 /hpf; URINE UROBILINOGEN Negative (NEGATIVE)
== END 2019-10-23 14:00 | disposition home or self-care (01) ==
LOC: EUO 13:00
PROVIDERS: Nurse Practitioner
DX: N39.0 Urinary tract infection, site not specified (principal)
CPT/HCPCS: J1335

== ENCOUNTER 2020-01-21 07:30 | Outpatient (RCR) | payer MEDICARE, MEDICAID ==
[2020-01-14 10:53] VITALS: BP 95/53; PULSE 75; TEMP 98.1
[2020-01-14 11:11] LABS: BASO % 0.3 % (0.0-2.0); EOS % 0.6 % (0-4.0); GRAN # 3.6 (1.4-6.5); GRAN % 58.6 % (42.2-75.2); HEMATOCRIT 38.2 % (37.0-47.0); HEMOGLOBIN 12.6 g/dl (12.5-16.0); LYMPH # 2.1 (1.2-3.4); LYMPH % 33.9 % (20.0-51.0); MEAN CELL VOLUME 127 fl (80.0-100.0); MEAN CORPUSCULAR HEMOGLOBIN 42 pg (27.0-31.0); MEAN CORPUSCULAR HGB CONC 33 g/dl (33.0-37.0); MEAN PLATELET VOLUME 9.1 fl (7.4-10.4); MONO # 0.4 (0.1-0.6); MONO % 6.3 % (1.7-9.3); PLATELET COUNT 276 K/mm3 (130-400); RED BLOOD COUNT 3.02 M/mm3 (4.10-5.30); REDCELL DISTRIBUTION WIDTH-CV 12.1 % (11.5-14.5)
[2020-01-14 11:45] LABS: ERYTHROCYTE SEDIMENTATION RATE 6 mm/hr (0-20)
[2020-01-15 08:53] VITALS: BP 110/76; PULSE 65; TEMP 98.1
[2020-01-15 23:41] LABS: ALBUMIN 4.1 gm/dL (3.5-5.0); BILIRUBIN,TOTAL 0.4 mg/dL (0.0-1.0); CALCIUM 9.9 mg/dL (8.4-10.2); CREATININE, serum 1.07 (0.52-1.25); TOTAL PROTEIN 6.6 gm/dL (6.4-8.2)
[2020-01-16 07:49] VITALS: BP 103/55; PULSE 73; TEMP 98.2
[2020-01-17 08:13] VITALS: BP 126/65; PULSE 70; TEMP 97.4
[2020-01-18 07:57] VITALS: BP 116/52; PULSE 80; TEMP 98.4
[2020-01-19 07:56] VITALS: BP 117/58; PULSE 66; TEMP 98.5
[2020-01-20 07:55] VITALS: BP 92/54; PULSE 78; TEMP 98.3
[2020-01-20 08:56] LABS: COLLECTION METHOD CLEAN CATCH
[2020-01-20 09:35] LABS: MUCOUS Present /lpf; PH 5 (5-8); URINE APPEARANCE Cloudy; URINE BACTERIA None Seen /hpf; URINE BILIRUBIN Negative (NEGATIVE); URINE BLOOD 3+ (NEGATIVE); URINE CALCIUM OXALATE CRYSTAL Present /hpf; URINE COLOR Yellow; URINE GLUCOSE Negative (NEGATIVE); URINE KETONE Negative (NEGATIVE); URINE LEUKOCYTE ESTERASE 3+ (NEGATIVE); URINE NITRATE Negative (NEGATIVE); URINE PROTEIN(semi-quant) 2+ (NEGATIVE); URINE RBC >50 /hpf; URINE UROBILINOGEN Negative (NEGATIVE)
[~2020-01-21] VITALS: Ht 154.9 cm; Wt 73.5 kg
[~2020-01-21 07:30] MED LIST changes: +KLONOPIN 0.5MG0.5 MG PO
[2020-01-21 08:09] VITALS: BP 100/69; PULSE 81; TEMP 98.2
[2020-01-21 11:03] LABS: CLOSTRIDIUM DIFF A/B NEG; CLOSTRIDIUM DIFF A/B INTERP No C.diff present
== END 2020-01-21 16:31 | disposition still patient (30) ==
LOC: EUO 07:30
PROVIDERS: Nurse Practitioner
DX: N39.0 Urinary tract infection, site not specified (principal)
CPT/HCPCS: J1335

== ENCOUNTER → 2020-02-08 | Outpatient (CLI) | payer MEDICARE, MEDICAID ==
[2020-02-08 10:08] LABS: COLLECTION METHOD CLEAN CATCH
[2020-02-08 10:57] LABS: MUCOUS Present /lpf; PH 5 (5-8); URINE APPEARANCE Cloudy; URINE BACTERIA Rare /hpf; URINE BILIRUBIN Negative (NEGATIVE); URINE BLOOD 3+ (NEGATIVE); URINE COLOR Yellow; URINE GLUCOSE Negative (NEGATIVE); URINE KETONE Negative (NEGATIVE); URINE LEUKOCYTE ESTERASE 3+ (NEGATIVE); URINE NITRATE Negative (NEGATIVE); URINE PROTEIN(semi-quant) 2+ (NEGATIVE); URINE RBC >50 /hpf; URINE UROBILINOGEN Negative (NEGATIVE)
== END ==
LOC: COL.LAB
PROVIDERS: Nurse Practitioner
DX: N39.0 Urinary tract infection, site not specified (principal)

== ENCOUNTER → 2020-02-18 | Outpatient (CLI) | payer MEDICARE, MEDICAID ==
[2020-02-18 09:57] LABS: COLLECTION METHOD CLEAN CATCH
[2020-02-18 10:42] LABS: PH 5 (5-8); URINE APPEARANCE Cloudy; URINE BACTERIA Occasional /hpf; URINE BILIRUBIN Negative (NEGATIVE); URINE BLOOD 3+ (NEGATIVE); URINE CALCIUM OXALATE CRYSTAL Present /hpf; URINE COLOR Yellow; URINE GLUCOSE Negative (NEGATIVE); URINE KETONE Negative (NEGATIVE); URINE LEUKOCYTE ESTERASE 3+ (NEGATIVE); URINE NITRATE Negative (NEGATIVE); URINE PROTEIN(semi-quant) 2+ (NEGATIVE); URINE RBC >50 /hpf; URINE UROBILINOGEN Negative (NEGATIVE)
== END ==
LOC: COL.LAB
DX: N39.0 Urinary tract infection, site not specified (principal)

== ENCOUNTER → 2020-03-30 | Outpatient (CLI) | payer MEDICARE, MEDICAID | LOC: COL.LAB 10:17 | DX: N30.01 Acute cystitis with hematuria (principal) ==

== ENCOUNTER 2020-05-30 18:17 | Observation (INO) | payer MEDICARE, MEDICAID ==
[~2020-05-30] VITALS: Ht 154.9 cm; Wt 79.5 kg
[2020-05-30 18:52] LABS: COLLECTION METHOD CLEAN CATCH
[2020-05-30 19:03] LABS: BUDDING YEAST Present /hpf; MUCOUS Present /lpf; PH 6 (5-8); SQUAMOUS EPITHELIAL 0-2 /hpf; URINE APPEARANCE Cloudy; URINE BACTERIA None Seen /hpf; URINE BILIRUBIN Negative (NEGATIVE); URINE BLOOD 3+ (NEGATIVE); URINE COLOR Yellow; URINE GLUCOSE Negative (NEGATIVE); URINE KETONE Negative (NEGATIVE); URINE LEUKOCYTE ESTERASE 3+ (NEGATIVE); URINE NITRATE Negative (NEGATIVE); URINE PROTEIN(semi-quant) 2+ (NEGATIVE); URINE RBC >50 /hpf; URINE UROBILINOGEN Negative (NEGATIVE)
[2020-05-30 20:00] LABS: BASO % 0.3 % (0.0-2.0); EOS # 0.1 (0.0-0.7); EOS % 1.9 % (0-4.0); GRAN # 4.2 (1.4-6.5); HEMATOCRIT 38.9 % (37.0-47.0); LYMPH # 2.1 (1.2-3.4); LYMPH % 30.3 % (20.0-51.0); MEAN CELL VOLUME 136 fl (80.0-100.0); MEAN CORPUSCULAR HEMOGLOBIN 42 pg (27.0-31.0); MEAN CORPUSCULAR HGB CONC 31 g/dl (33.0-37.0); MEAN PLATELET VOLUME 9.1 fl (7.4-10.4); MONO # 0.5 (0.1-0.6); MONO % 6.9 % (1.7-9.3); PLATELET COUNT 298 K/mm3 (130-400); RED BLOOD COUNT 2.86 M/mm3 (4.10-5.30); REDCELL DISTRIBUTION WIDTH-CV 12.3 % (11.5-14.5)
[2020-05-30 20:17] LABS: ALBUMIN 4.3 gm/dL (3.5-5.0); BILIRUBIN,TOTAL 0.2 mg/dL (0.0-1.0); C-REACTIVE PROTEIN 1.9 mg/dL (0.0-0.9); CALCIUM 9.9 mg/dL (8.4-10.2); CREATININE, serum 1.3 (0.52-1.25); POTASSIUM 4.6 mmol/L (3.4-5.0); TOTAL PROTEIN 7.9 gm/dL (6.4-8.2)
[2020-05-30 22:30] VITALS: BP 113/65; PULSE 75; TEMP 98
--- NOTE | 2020-05-30 23:00 | NUR ---
Patient up from ED via wheelchair. Oriented to room and call light. Admission done. PAtient having some flank pain. Fluids started. Patient will be NPO after midnight. No other needs at this time.
[2020-05-31] VITALS (10 sets, daily range): BP systolic 108–134; BP diastolic 60–71; PULSE 74–100; TEMP 97.5–99
--- NOTE | 2020-05-31 07:15 | NUR ---
AT SHIFT CHANGE, TELE CALLED AND REPORTED PATIENT OFF TELE. CHANGED LEADS, NO SIGNAL. CHANGED BATTERIES, NO SIGNAL. CALLED TELE FOR NEW BOX. PLACED PATIENT ON NEW TELE, HR IN THE MID 50'S.
[2020-05-31 07:16] LABS: BASO % 0.1 % (0.0-2.0); EOS % 0.4 % (0-4.0); GRAN # 6.4 (1.4-6.5); GRAN % 82.1 % (42.2-75.2); HEMATOCRIT 37.8 % (37.0-47.0); HEMOGLOBIN 11.6 g/dl (12.5-16.0); LYMPH # 0.9 (1.2-3.4); LYMPH % 11.4 % (20.0-51.0); MEAN CELL VOLUME 136 fl (80.0-100.0); MEAN CORPUSCULAR HEMOGLOBIN 42 pg (27.0-31.0); MEAN CORPUSCULAR HGB CONC 31 g/dl (33.0-37.0); MEAN PLATELET VOLUME 9.6 fl (7.4-10.4); MONO # 0.4 (0.1-0.6); MONO % 5.4 % (1.7-9.3); PLATELET COUNT 258 K/mm3 (130-400); RED BLOOD COUNT 2.78 M/mm3 (4.10-5.30); REDCELL DISTRIBUTION WIDTH-CV 12.3 % (11.5-14.5)
--- NOTE | 2020-05-31 07:30 | NUR ---
DR.EVANGELIDIS BROOKS. SEE ORDERS FOR CONSENT. PATIENT TO GO TO THE OR LATER.
[2020-05-31 07:37] LABS: CALCIUM 9.3 mg/dL (8.4-10.2); CREATININE, serum 0.94 (0.52-1.25); POTASSIUM 4.1 mmol/L (3.4-5.0)
--- NOTE | 2020-05-31 08:00 | NUR ---
PATIENT DROWSY BUT ARROUSABLE. ORIENTED X4. PATIENT C/O PAIN IN LEFT FLANK RATED AT 6/10. GAVE PRN IV DILAUDID. STRAINING URINE PER PROTOCOL. IV FLUIDS INFUSING INTO LEFT FORARM IV. HEAD TO TOE ASSESSMENT COMPLETE. NPO FOR SURGERY LATER TODAY. PATIENT RESTING WITH LIGHTS TURNED OFF AND CALL LIGHT IN REACH. NO OTHER NEEDS AT THIS TIME.
[2020-05-31 09:54] LABS: CLOSTRIDIUM DIFF A/B NEG; CLOSTRIDIUM DIFF A/B INTERP No C.diff present
--- NOTE | 2020-05-31 10:30 | NUR ---
C-DIFF NEGATIVE, NO PRECAUTIONS NEEDED
--- NOTE | 2020-05-31 10:30 | NUR ---
HOSPITALIST ROUNDING, SEE ORDERS
--- NOTE | 2020-05-31 10:45 | NUR ---
SW attended clinical rounds. The patient is to have a stent placement today. SW followed up with the patient to discuss discharge plan. The patient lives in [place] with her boyfriend, Maksim Dubois (ph#[phone]). She reports independence with ADLs and has a cane. The patient's PCP is Dr. Gypsy Celaya and she receives her medications from [email or web address]. She reports no difficulties obtaining her meds. The patient does not have a DPOA-HC, but she was interested in a form. DEBO provided. The patient states that she is not and that she has one child: Daryl (ph#[phone]). Daryl lives in [place]. SW informed the patient that Daryl would be her legal next of kin. The patient states that she would not want Daryl as her decision maker. She states that she would want her boyfriend. SW encouraged the patient to complete the DPOA-HC. The patient states that she would prefer just to bring the form home and complete it then. The patient plans to return home with her boyfriend upon discharge. SW contacted the patient's boyfriend, Maksim, to review the above information. Maksim has no concerns with the patient returning home with him upon discharge. No additional needs at this time.
--- NOTE | 2020-05-31 11:42 | NUR ---
PATIENT GOING DOWN TO OR VIA BED. CONSENT ON CHART. IV FLUIDS TO GRAVITY. PATIENT OFF FLOOR.
--- NOTE | 2020-05-31 19:45 | NUR ---
Patient assessed at this time. Alert and oriented x 4, and able to make needs known. Reported level 9 pain to groin/back area. PRN Percocet was not effective. Given PRN Dilaudid at this time. Peripheral INT to left wrist. Spoke with YVONNE Spencer to see if fluids could be D/C'd or decreased as requested by patient. Fluids decreased to 75 ml/hr. Site without redness, warmth, swelling, and pain. Denies having SOB and dyspnea. LS CTA. Respirations even and unlabored. HRR. Capillary refill less than 3 seconds. Non-tenting skin turgor. BSAx4. Abdomen soft and non-tender. No edema. Patient voices no questions, needs, or concerns at this time. Resting in bed with call light within reach.
[2020-06-01 00:44] VITALS: BP 94/57; PULSE 83; TEMP 98.3
[2020-06-01 04:56] VITALS: BP 104/42; PULSE 82; TEMP 98.4
--- NOTE | 2020-06-01 05:38 | NUR ---
Patient has been receiving PRN Dilaudid and Percocet for pain throughout the night. IV fluids continue per orders. Patient resting in bed with call ligh within reach. Besides pain medication, voices no further questions, needs, or concerns at this time.
[2020-06-01 06:18] LABS: BASO % 0.1 % (0.0-2.0); EOS % 0.1 % (0-4.0); GRAN # 7.4 (1.4-6.5); GRAN % 73.4 % (42.2-75.2); HEMOGLOBIN 10.4 g/dl (12.5-16.0); LYMPH # 1.8 (1.2-3.4); LYMPH % 17.7 % (20.0-51.0); MEAN CELL VOLUME 133 fl (80.0-100.0); MEAN CORPUSCULAR HEMOGLOBIN 42 pg (27.0-31.0); MEAN CORPUSCULAR HGB CONC 31 g/dl (33.0-37.0); MEAN PLATELET VOLUME 9.7 fl (7.4-10.4); MONO # 0.8 (0.1-0.6); MONO % 8.2 % (1.7-9.3); PLATELET COUNT 246 K/mm3 (130-400); RED BLOOD COUNT 2.49 M/mm3 (4.10-5.30); REDCELL DISTRIBUTION WIDTH-CV 12.2 % (11.5-14.5)
[2020-06-01 06:21] LABS: HEMATOCRIT 33.1 % (37.0-47.0)
[2020-06-01 06:26] LABS: CALCIUM 8.8 mg/dL (8.4-10.2); CREATININE, serum 0.83 (0.52-1.25); POTASSIUM 3.8 mmol/L (3.4-5.0)
--- NOTE | 2020-06-01 06:30 | NUR ---
Pt up in her room during report. She does have complaints of pain. States it is on both sides. Output is bloody. Gave her a brief per her request. No other needs at this time, call light within reach
[2020-06-01] MEDS ORDERED: FLOMAX 0.40.4 MG/CAP PO (07:50)
[2020-06-01 08:00] VITALS: BP 124/52; PULSE 93; TEMP 97.5
--- NOTE | 2020-06-01 08:17 | NUR ---
Pt having complaints of pain. Dr Maguire has been in to see patient. Awaiting orders. Patient reported that he said he would order something else for pain. Patient has had breakfast, no other needs. Call light within reach, will continue to monitor
[2020-06-01] MEDS ORDERED: OMNICEF 300MG300 MG PO (09:30)
[2020-06-01] MEDS ORDERED: PROBIOTIC ACID1 EAC3 PO (09:33)
--- NOTE | 2020-06-01 10:55 | NUR ---
Pt ready for discharge and her ride is avaiable. Reviewed discharge instructions with her and her significant other. INT removed from left wrist. Pt escorted out at this time
--- NOTE | 2020-06-01 11:58 | NUR ---
First visit from the warehouse foreman. No needs right now.
== END 2020-06-01 10:56 | disposition home or self-care (01) ==
LOC: COL.ER 18:17 → SURG 21:24
PROVIDERS: Nurse Practitioner; Student in an Organized Health Care Education/Training Program; ADMIT Student in an Organized Health Care Education/Training Program
DX: N13.2 Hydronephrosis with renal and ureteral calculous obstruction (principal); N39.0 Urinary tract infection, site not specified; L88 Pyoderma gangrenosum; D89.89 Other specified disorders involving the immune mechanism, not elsewhere classified; F17.210 Nicotine dependence, cigarettes, uncomplicated; R19.7 Diarrhea, unspecified; E87.2 Acidosis; I49.9 Cardiac arrhythmia, unspecified; F32.9 Major depressive disorder, single episode, unspecified; F41.9 Anxiety disorder, unspecified; G47.00 Insomnia, unspecified; G89.29 Other chronic pain; N17.9 Acute kidney failure, unspecified; D53.9 Nutritional anemia, unspecified; M35.9 Systemic involvement of connective tissue, unspecified; H91.90 Unspecified hearing loss, unspecified ear; Z96.21 Cochlear implant status; Z79.899 Other long term (current) drug therapy
CPT/HCPCS: 99223-AI; 99233-AI; 99239; C1769; C2617; G0378; J0690; J0696; J1100; J1170; J1885; J2405; J2704; J3010; J7030; J7120; Q9967

== ENCOUNTER 2020-06-09 08:11 | Day surgery (SDC) | payer MEDICARE, MEDICAID ==
[~2020-06-09] VITALS: Ht 154.9 cm; Wt 72.8 kg
[2020-06-09] VITALS (7 sets, daily range): BP systolic 129–139; BP diastolic 41–74; PULSE 69–102; TEMP 97.8
[~2020-06-09 08:11] MED LIST changes: +FLOMAX 0.40.4 MG/CAP PO; +PROBIOTIC ACID1 EAC3 PO
[2020-06-09] MEDS ORDERED: ABILIFY2 MG PO (09:29)
[2020-06-09] MEDS ORDERED: KLONOPIN 1MG1 MG PO (09:30)
[2020-06-09] MEDS ORDERED: NORCO 325 MG-51 TAB PO (12:27)
--- NOTE | 2020-06-09 12:50 | NUR ---
Patient returns to room 6 per cart from PACU accompanied by Viviane MONTENEGRO and arouses to verbal stimuli. Temp 97.8 and sats on room air 96%. IV fluids infusing and site is free of redness. Siderails up x2 and call light in reach. Friend in room. Allowed to rest.
--- NOTE | 2020-06-09 13:05 | NUR ---
Continues to rest without complaints of pain or nausea. IV fluids infusing.
--- NOTE | 2020-06-09 13:20 | NUR ---
Awake and states that she is having some intermittent nausea.
--- NOTE | 2020-06-09 13:25 | NUR ---
Zofran 4mg IV given for intermittent nausea.
--- NOTE | 2020-06-09 13:35 | NUR ---
Resting with eyes closed when not disturbed.
--- NOTE | 2020-06-09 13:50 | NUR ---
Continues to rest without complaints of further nausea.
--- NOTE | 2020-06-09 14:14 | NUR ---
Assisted up to the bathroom and gait steady. Voids and returns to room. Eating toast and drinking Sprite. Denies further nausea. IV to INT.
--- NOTE | 2020-06-09 14:33 | NUR ---
Dismissal instructions given and voices understanding of these. Instructed that script for [place] was sent to [facility].
--- NOTE | 2020-06-09 14:35 | NUR ---
Patient dismissed to home driven by friend and taken to the front door per wheelchair and assisted into car with instructions in hand.
== END 2020-06-09 14:35 | disposition home or self-care (01) ==
LOC: SDCO 08:11
DX: N20.0 Calculus of kidney (principal); Z87.440 Personal history of urinary (tract) infections; I10 Essential (primary) hypertension; K21.9 Gastro-esophageal reflux disease without esophagitis; G89.29 Other chronic pain; F32.9 Major depressive disorder, single episode, unspecified; F41.9 Anxiety disorder, unspecified; D64.9 Anemia, unspecified; M35.00 Sjogren syndrome, unspecified
CPT/HCPCS: C1769; C1894; C2617; J0690; J1100; J2405; J2704; J3010; J7120; Q9967

== ENCOUNTER 2020-06-12 18:19 | Inpatient (IN) | payer MEDICARE, MEDICAID ==
[~2020-06-12] VITALS: Ht 154.9 cm; Wt 72.9 kg
[~2020-06-12 18:19] MED LIST changes: +KLONOPIN 1MG1 MG PO
[2020-06-12 19:10] LABS: COLLECTION METHOD CLEAN CATCH
[2020-06-12 19:14] LABS: BASO % 0.2 % (0.0-2.0); EOS # 0.1 (0.0-0.7); EOS % 0.4 % (0-4.0); GRAN # 12.9 (1.4-6.5); GRAN % 83.4 % (42.2-75.2); HEMOGLOBIN 10.4 g/dl (12.5-16.0); LYMPH # 1.3 (1.2-3.4); LYMPH % 8.2 % (20.0-51.0); MEAN CELL VOLUME 133 fl (80.0-100.0); MEAN CORPUSCULAR HEMOGLOBIN 41 pg (27.0-31.0); MEAN CORPUSCULAR HGB CONC 31 g/dl (33.0-37.0); MONO % 6.7 % (1.7-9.3); PLATELET COUNT 305 K/mm3 (130-400); RED BLOOD COUNT 2.55 M/mm3 (4.10-5.30)
[2020-06-12 19:15] LABS: HEMATOCRIT 33.9 % (37.0-47.0)
[2020-06-12 19:20] LABS: MUCOUS Present /lpf; PH 6 (5-8); SQUAMOUS EPITHELIAL 0-2 /hpf; URINE APPEARANCE Cloudy; URINE BACTERIA Rare /hpf; URINE BILIRUBIN Negative (NEGATIVE); URINE BLOOD 3+ (NEGATIVE); URINE COLOR Yellow; URINE GLUCOSE Negative (NEGATIVE); URINE KETONE Negative (NEGATIVE); URINE LEUKOCYTE ESTERASE 3+ (NEGATIVE); URINE NITRATE Negative (NEGATIVE); URINE PROTEIN(semi-quant) 2+ (NEGATIVE); URINE RBC >50 /hpf; URINE UROBILINOGEN Negative (NEGATIVE)
[2020-06-12 19:25] LABS: ALBUMIN 3.5 gm/dL (3.5-5.0); BILIRUBIN,TOTAL 0.3 mg/dL (0.0-1.0); CALCIUM 8.9 mg/dL (8.4-10.2); CREATININE, serum 1.02 (0.52-1.25); POTASSIUM 4.6 mmol/L (3.4-5.0); TOTAL PROTEIN 6.7 gm/dL (6.4-8.2)
[2020-06-13 00:09] VITALS: BP 118/63; PULSE 86; TEMP 98.7
[2020-06-13 03:34] VITALS: BP 139/63; PULSE 102; TEMP 98.9
[2020-06-13 07:43] VITALS: BP 124/54; PULSE 95; TEMP 98.3
[2020-06-13 08:15] LABS: BASO % 0.2 % (0.0-2.0); EOS % 0.3 % (0-4.0); GRAN # 12.2 (1.4-6.5); GRAN % 83.6 % (42.2-75.2); LYMPH # 1.3 (1.2-3.4); LYMPH % 8.7 % (20.0-51.0); MEAN CELL VOLUME 131 fl (80.0-100.0); MEAN CORPUSCULAR HGB CONC 31 g/dl (33.0-37.0); MEAN PLATELET VOLUME 9.3 fl (7.4-10.4); MONO # 0.9 (0.1-0.6); MONO % 6.4 % (1.7-9.3); PLATELET COUNT 282 K/mm3 (130-400); RED BLOOD COUNT 2.33 M/mm3 (4.10-5.30); REDCELL DISTRIBUTION WIDTH-CV 12.7 % (11.5-14.5)
[2020-06-13 08:16] LABS: HEMATOCRIT 30.6 % (37.0-47.0); HEMOGLOBIN 9.5 g/dl (12.5-16.0); MEAN CORPUSCULAR HEMOGLOBIN 41 pg (27.0-31.0)
[2020-06-13 08:33] LABS: ALBUMIN 3.2 gm/dL (3.5-5.0); BILIRUBIN,TOTAL 0.3 mg/dL (0.0-1.0); CALCIUM 8.5 mg/dL (8.4-10.2); CREATININE, serum 0.71 (0.52-1.25); POTASSIUM 4.5 mmol/L (3.4-5.0); TOTAL PROTEIN 6.2 gm/dL (6.4-8.2)
--- NOTE | 2020-06-13 11:40 | NUR ---
NOTIFIED OF CONSULT WILL BE BY LATER THIS PM TO SEE PATIENT.
[2020-06-13 11:46] LABS: IRON,SERUM < 10 ug/dL (35-150)
[2020-06-13 11:47] VITALS: BP 143/83; PULSE 110; TEMP 98.7
[2020-06-13 11:56] LABS: TOTAL IRON BINDING CAPACITY 295 ug/dL (265-497)
--- NOTE | 2020-06-13 14:29 | NUR ---
Pt is compliant with all medications. She has a constant state of pain even with pain medications provided. Pt is independent and can ambulate to go to the bathroom. Pt has a complaint of nausea and that prevented her from eating much food. Zofran was given but her appetite still was not there.
--- NOTE | 2020-06-13 14:44 | NUR ---
This instructor supervised OTONIEL's care, agree with documentation.
--- NOTE | 2020-06-13 15:41 | NUR ---
County Director met with the patient and her life partner, Maksim Dubois to complete intake. The patient lives in [place] with Maksim. The patient has a cane and is independent. The patient's PCP is Dr. Brambila. The patient does not have advanced but was interested in completing DPOA-HC form. Form provided. The patient has designated Maksim a DPOA-HC. DEBO Garner and this SW witnessed. A copy was placed in the chart. The original and copies were provided to the patient. The plan is to return home at discharge. Discharge disposition: Home with life partner Maksim.
--- NOTE | 2020-06-13 15:42 | NUR ---
first visit from the plastic eye technician. prayed with patient. No other needs right now.
[2020-06-13 16:54] VITALS: BP 130/73; PULSE 113; TEMP 98.4
--- NOTE | 2020-06-13 17:26 | NUR ---
PT HAD 300 MLS BRIGHT GREEN EMESIS AT THIS TIME. GAVE IV ZOFRAN ORDERED. CONSENT SIGNED ON CHART.
[2020-06-13 19:41] VITALS: BP 125/65; PULSE 84; TEMP 98.3
[2020-06-14] VITALS (12 sets, daily range): BP systolic 99–137; BP diastolic 43–65; PULSE 83–104; TEMP 97.5–98.8
[2020-06-14 00:24] LABS: FOLATE (FOLIC ACID) 11.9 ng/mL (7.0-31.4)
--- NOTE | 2020-06-14 05:02 | NUR ---
PATIENT REPORTED SEVERAL LOOSE BM'S. YVONNE OSULLIVAN NOTIFIED. IMODIUM ORDERED AND ADMINISTERED. PRN PAIN MEDICATION AND ZOFRAN ADMINISTERED REQUESTED BY PATIENT PER 'S ORDERS. NO NEW ISSUES NOTED OR REPORTED BY PATIENT. PATIENT HAS BEEN NPO SINCE MIDNIGHT DUE TO PLANNED PROCEDURES TODAY. PATIENT CALM AND COOPERATIVE THROUGHOUT THE NIGHT.
[2020-06-14 07:06] LABS: HEMOGLOBIN 11.2 g/dl (12.5-16.0); MEAN CELL VOLUME 131 fl (80.0-100.0); MEAN CORPUSCULAR HEMOGLOBIN 41 pg (27.0-31.0); MEAN CORPUSCULAR HGB CONC 32 g/dl (33.0-37.0); MEAN PLATELET VOLUME 9.7 fl (7.4-10.4); PLATELET COUNT 380 K/mm3 (130-400); RED BLOOD COUNT 2.72 M/mm3 (4.10-5.30); REDCELL DISTRIBUTION WIDTH-CV 12.6 % (11.5-14.5)
[2020-06-14 07:17] LABS: HEMATOCRIT 35.5 % (37.0-47.0)
[2020-06-14 07:18] LABS: CALCIUM 9.5 mg/dL (8.4-10.2); CREATININE, serum 0.7 (0.52-1.25); POTASSIUM 3.8 mmol/L (3.4-5.0)
--- NOTE | 2020-06-14 07:45 | NUR ---
PATIENT BACK ON THE FLOOR FROM EGD PROCEDURE. ALERT AND ORIENTED X3. VSS. NO COMPLAINTS OF PAIN AT THIS TIME. PATIENT DOES SAY SHE IS A LITTLE NAUSEOUS, WITH NO VOMITTING AT THIS TIME. PATIENT REMAINS NPO FOR ABDOMINAL ULTRASOUND. HEAD TO TOE ASSESSMENT COMPLETED. LUNG SOUNDS CLEAR IN ALL LOBES. HEART SOUNDS REGULAR AND NORMAL. BOWEL SOUNDS ACTIVE IN ALL FOUR QUADRANTS. PATIENT DENIES ANY PAIN OR TENDERNESS IN HER CALVES, THERE IS NO REDNESS OR ABNORMAL WARMTH IN THE CALVES. NO EDEMA NOTED. ALL PULSES ARE READILY PALPABLE. BED LEFT IN THE LOWEST POSITION AND CALL LIGHT LEFT WITHIN REACH.
--- NOTE | 2020-06-14 07:45 | NUR ---
PATIENT BACK IN ROOM POST OP FROM EGD. ENDO REPORTED FINDING GASTRITIS & ESOPHAGITIS. PATIENT STILL NPO FOR ABD US THIS AM. CAPSTONE STUDENT DID HEAD TO TOE ASSESSMENT, SEE CHARTING. VSS. NO C/O PAIN. PATIENT RESTING IN BED WITH CALL LIGHT IN REACH. GRAILS WEB APPLICATION DEVELOPER REPORTED PATIENT IS INDEPENDENT IN ROOM.
--- NOTE | 2020-06-14 08:00 | NUR ---
ASSESSED PATIENT WITH CAPSTONE STUDENT, SEE STUDENT CHARTING
--- NOTE | 2020-06-14 10:10 | NUR ---
CONSULTING INFECTIOUS DISEASE, LEFT MESSAGE.
--- NOTE | 2020-06-14 10:18 | NUR ---
Identification Officer attended clinical rounds with the team.
--- NOTE | 2020-06-14 10:29 | NUR ---
INFECTIOU DISEASE NURSE CALLED AND REPORTED URINE CULTURE CAME BACK POSITIVE FOR VRE. PATIENT PLACED ON PRECAUTIONS.
[2020-06-15 03:10] VITALS: BP 109/60; PULSE 89; TEMP 98.4
--- NOTE | 2020-06-15 07:26 | NUR ---
Patient resting in bed at this time. LR running at 100 mls/hr. Patient denies any pain or discomfort at this time. Patient denies any needs. Call light within reach. Fall percautions in place.
[2020-06-15 07:37] LABS: MEAN CELL VOLUME 129 fl (80.0-100.0); MEAN CORPUSCULAR HGB CONC 31 g/dl (33.0-37.0); MEAN PLATELET VOLUME 9.4 fl (7.4-10.4); PLATELET COUNT 289 K/mm3 (130-400); RED BLOOD COUNT 2.24 M/mm3 (4.10-5.30); REDCELL DISTRIBUTION WIDTH-CV 12.5 % (11.5-14.5)
[2020-06-15 07:42] LABS: HEMATOCRIT 28.8 % (37.0-47.0); MEAN CORPUSCULAR HEMOGLOBIN 40 pg (27.0-31.0)
[2020-06-15 07:43] LABS: CALCIUM 8.7 mg/dL (8.4-10.2); CREATININE, serum 0.55 (0.52-1.25); POTASSIUM 3.8 mmol/L (3.4-5.0)
[2020-06-15 08:21] VITALS: BP 124/53; PULSE 91; TEMP 97.6
[2020-06-15] MEDS ORDERED: PROTONIX 40MG T40 MG PO (08:53)
[2020-06-15] MEDS ORDERED: MACROBID 1100 MG/CAP PO (08:54)
--- NOTE | 2020-06-15 09:15 | NUR ---
Jersey Knitter attended clinical rounds with the team and patient to discharge home today.
--- NOTE | 2020-06-15 11:37 | NUR ---
Patient fits discharge criteria. Scheduled meds given. IV DC'd with catheter intact. No signs of phlebitis. Discharge education given. Patient verbalized an understanding of the teaching and denied any further questions. Patient vital signs are stable; BP 124/53, HR 91, Respirations 18, SPO2 94% on RA, and temp 97.6. Patient denies any pain. Small amount of blood in stool, YVONNE Pa notified. Her recommendation was to keep an eye on the amount of blood in stool, and if it increased, to contact PCP immediately. Patient escorted out of building by via simba staff.
== END 2020-06-15 11:51 | disposition home or self-care (01) | DRG 689 ==
LOC: COL.ER 18:19 → MEDICAL 22:43 → COL.ER 22:43 → MEDICAL 22:43
PROVIDERS: Family Medicine; Internal Medicine Gastroenterology; Physician Assistant; ADMIT Student in an Organized Health Care Education/Training Program
PROC: 0DB68ZX Excision of Stomach, Via Natural or Artificial Opening Endoscopic, Diagnostic (ICD-10-PCS; 2020-06-14)
PROC: 0DB38ZX Excision of Lower Esophagus, Via Natural or Artificial Opening Endoscopic, Diagnostic (ICD-10-PCS; principal; 2020-06-14 07:00)
DX: N39.0 Urinary tract infection, site not specified (principal); J96.01 Acute respiratory failure with hypoxia; K85.90 Acute pancreatitis without necrosis or infection, unspecified; E87.2 Acidosis; R65.10 Systemic inflammatory response syndrome (SIRS) of non-infectious origin without acute organ dysfunction; L88 Pyoderma gangrenosum; D53.9 Nutritional anemia, unspecified; D89.89 Other specified disorders involving the immune mechanism, not elsewhere classified; Z20.822 Contact with and (suspected) exposure to COVID-19; K29.70 Gastritis, unspecified, without bleeding; I44.1 Atrioventricular block, second degree; K25.9 Gastric ulcer, unspecified as acute or chronic, without hemorrhage or perforation; K21.00 Gastro-esophageal reflux disease with esophagitis, without bleeding; E88.09 Other disorders of plasma-protein metabolism, not elsewhere classified; F41.9 Anxiety disorder, unspecified; F43.29 Adjustment disorder with other symptoms; G89.29 Other chronic pain; H91.90 Unspecified hearing loss, unspecified ear; Z96.21 Cochlear implant status; F17.210 Nicotine dependence, cigarettes, uncomplicated; Z87.11 Personal history of peptic ulcer disease; Z88.2 Allergy status to sulfonamides; Z88.8 Allergy status to other drugs, medicaments and biological substances
CPT/HCPCS: 99223-AI; 99233-AI; 99239; A9284; C9113; G0378; J0595; J0696; J0878; J1644; J1885; J2250; J2405; J3010; J7030; J7120; J7515; Q9967

== ENCOUNTER 2020-06-23 05:34 | Inpatient (IN) | payer MEDICARE, MEDICAID ==
[~2020-06-23] VITALS: Ht 162.6 cm; Wt 75.0 kg
[~2020-06-23 05:34] MED LIST changes: +PROTONIX 40MG T40 MG PO
[2020-06-23 06:03] LABS: COLLECTION METHOD CLEAN CATCH
[2020-06-23 06:15] LABS: MUCOUS Present /lpf; PH 6 (5-8); SQUAMOUS EPITHELIAL 0-2 /hpf; URINE APPEARANCE Hazy; URINE BACTERIA None Seen /hpf; URINE BILIRUBIN Negative (NEGATIVE); URINE BLOOD 1+ (NEGATIVE); URINE COLOR Yellow; URINE GLUCOSE Negative (NEGATIVE); URINE KETONE 1+ (NEGATIVE); URINE LEUKOCYTE ESTERASE Negative (NEGATIVE); URINE NITRATE Negative (NEGATIVE); URINE PROTEIN(semi-quant) 2+ (NEGATIVE); URINE RBC 0-2 /hpf; URINE UROBILINOGEN Negative (NEGATIVE)
[2020-06-23 06:44] LABS: BASO % 0.2 % (0.0-2.0); GRAN # 11.7 (1.4-6.5); GRAN % 84.7 % (42.2-75.2); HEMOGLOBIN 10.7 g/dl (12.5-16.0); LYMPH % 6.9 % (20.0-51.0); MEAN CELL VOLUME 132 fl (80.0-100.0); MEAN CORPUSCULAR HEMOGLOBIN 40 pg (27.0-31.0); MEAN CORPUSCULAR HGB CONC 30 g/dl (33.0-37.0); MEAN PLATELET VOLUME 9.3 fl (7.4-10.4); MONO % 7.2 % (1.7-9.3); PLATELET COUNT 430 K/mm3 (130-400); RED BLOOD COUNT 2.66 M/mm3 (4.10-5.30); REDCELL DISTRIBUTION WIDTH-CV 14.2 % (11.5-14.5)
[2020-06-23 06:47] LABS: HEMATOCRIT 35.2 % (37.0-47.0)
[2020-06-23 07:03] LABS: ALBUMIN 3.9 gm/dL (3.5-5.0); BILIRUBIN,TOTAL 0.3 mg/dL (0.0-1.0); CALCIUM 9.6 mg/dL (8.4-10.2); CREATININE, serum 0.81 (0.52-1.25); TOTAL PROTEIN 7.4 gm/dL (6.4-8.2)
[2020-06-23] MEDS ORDERED: BYSTOLIC5 MG PO (11:11)
[2020-06-23] MEDS ORDERED: PRILOSEC 20MG20 MG PO (11:11)
[2020-06-23 11:56] VITALS: BP 114/59; PULSE 86; TEMP 98.3
[2020-06-23 12:58] LABS: CALCIUM 8.4 mg/dL (8.4-10.2); CREATININE, serum 0.67 (0.52-1.25); POTASSIUM 3.8 mmol/L (3.4-5.0)
[2020-06-23 13:14] LABS: MEAN CELL VOLUME 131 fl (80.0-100.0); MEAN CORPUSCULAR HGB CONC 31 g/dl (33.0-37.0); MEAN PLATELET VOLUME 9.2 fl (7.4-10.4); PLATELET COUNT 376 K/mm3 (130-400); RED BLOOD COUNT 2.42 M/mm3 (4.10-5.30); REDCELL DISTRIBUTION WIDTH-CV 14.1 % (11.5-14.5)
[2020-06-23 13:19] LABS: HEMATOCRIT 31.8 % (37.0-47.0); HEMOGLOBIN 9.7 g/dl (12.5-16.0); MEAN CORPUSCULAR HEMOGLOBIN 40 pg (27.0-31.0)
[2020-06-23 13:35] LABS: LYMPHOCYTE 8 % (20.0-51.0); METAMYELOCYTE 1 % (0-0); NEUTROPHILS 88 % (42.0-75.2); PLATELET ESTIMATE NORMAL (NORMAL)
[2020-06-23 13:36] LABS: ANISOCYTOSIS 1+; MICROCYTOSIS 1+
[2020-06-23 16:03] VITALS: BP 118/67; PULSE 81; TEMP 98.4
--- NOTE | 2020-06-23 17:49 | NUR ---
Pt slept all afternoon, would arouse to voice but quickly fell back asleep. Pt had intermittent abdominal pain, PRN pain medications administered. Pt had no nausea. IVF infusing without issues. Called Dr. Celaya's office x2 for medication list, no list faxed to staff. Used medication list that was provided by patient. Fall precautions in place. No needs at this time.
[2020-06-23] MEDS ORDERED: DESYREL 100MG100 MG PO (18:30)
[2020-06-23] MEDS ORDERED: REMERON45 MG PO (18:33)
[2020-06-23] MEDS ORDERED: PROTONIX 40MG T40 MG PO (18:33)
[2020-06-23] MEDS ORDERED: UREX1 GM PO (18:35)
[2020-06-23 19:16] VITALS: BP 121/63; PULSE 82; TEMP 98.4
[2020-06-23 23:41] VITALS: BP 134/75; PULSE 83; TEMP 97
[2020-06-24 03:48] VITALS: BP 130/65; PULSE 85; TEMP 97.9
--- NOTE | 2020-06-24 06:35 | NUR ---
NO NEW ISSUES NOTED THROUGHOUT THE NIGHT. PATIENT STATES SHE DOESN'T FEEL GOOD. V/S STABLE, PT ALERT AND ORIENTED X'S 4, AND ABLE TO AMBULATE WITH SBA.
[2020-06-24 07:17] LABS: MEAN CELL VOLUME 133 fl (80.0-100.0); MEAN CORPUSCULAR HGB CONC 30 g/dl (33.0-37.0); MEAN PLATELET VOLUME 10.2 fl (7.4-10.4); PLATELET COUNT 460 K/mm3 (130-400); RED BLOOD COUNT 2.26 M/mm3 (4.10-5.30); REDCELL DISTRIBUTION WIDTH-CV 14.4 % (11.5-14.5)
[2020-06-24 07:24] LABS: HEMOGLOBIN 9.1 g/dl (12.5-16.0); MEAN CORPUSCULAR HEMOGLOBIN 40 pg (27.0-31.0)
[2020-06-24 07:34] LABS: ALBUMIN 2.9 gm/dL (3.5-5.0); BILIRUBIN,TOTAL 0.4 mg/dL (0.0-1.0); CALCIUM 8.6 mg/dL (8.4-10.2); CREATININE, serum 0.61 (0.52-1.25)
[2020-06-24 07:43] LABS: POTASSIUM 3.9 mmol/L (3.4-5.0)
[2020-06-24 07:54] VITALS: BP 111/55; PULSE 81; TEMP 98.4
[2020-06-24 08:22] LABS: BAND 4 % (0-10); HYPOCHROMIA 1+; LYMPHOCYTE 12 % (20.0-51.0); NEUTROPHILS 83 % (42.0-75.2); PLATELET ESTIMATE NORMAL (NORMAL)
--- NOTE | 2020-06-24 09:33 | NUR ---
Pt assessment complete. Pt is laying in bed with eyes closed arouses to voice, she is oriented x3. Her breathing is even and unlabored on RA. Pt denies SOB. Pt reporting that she feels terrible. Pain 10/10, and feels nauseous. IV to LFA not flushing attempted to maneuver it without success. Started new 22G to RAC, discussed possible PICC placement with patient and YVONNE Hooker. IVF infusing without issues. No needs at this time, at bedside. Call light within reach.
[2020-06-24 13:04] VITALS: BP 126/70; PULSE 81; TEMP 98.8
[2020-06-24 13:56] LABS: ARTERIAL BLD GAS O2 SATURATION 95.5 % (92-100); ARTERIAL BLD GAS TCO2 CT 15.8; ARTERIAL BLOOD GAS BASE EXCESS -10.2 (-2-2); ARTERIAL BLOOD GAS HCO3 14.8 meq/L (22-26); ARTERIAL BLOOD GAS PCO2 30.1 mmHg (35-45); ARTERIAL BLOOD GAS PO2 74.3 mmHg (80-100); ARTERIAL BLOOD GAS pH 7.31 (7.35-7.45)
--- NOTE | 2020-06-24 14:13 | NUR ---
DEBO met with the patient and her boyfriend, Maksim Dubois, to discuss discharge plan. The patient lives in [place] with Maksim. She reports that she was independent with ADLs prior to hospitalization and has a cane. The patient's PCP is Dr. Gypsy Celaya and she receives her medications from [facility]. She reports no difficulties obtaining her meds. The patient's DPOA-HC is in EMR and it designates Maksim. The patient reports that she would be interested in home health when she returns home. The patient has Medicare [employer]. The patient was interested in whichever agency takes her [employer]. DEBO contacted and faxed a referral to Hawa at [facility]. Hawa reports that they do take [employer] and would be able to take the patient. DEBO to inform the patient and will continue to follow. *Discharge plan: home with boyfriend and home health*
[2020-06-24 15:25] VITALS: BP 117/73; PULSE 82; TEMP 98.1
--- NOTE | 2020-06-24 18:16 | NUR ---
Pt rested in bed through the day. Ambulates well to the bathroom. Continues to have watery diarrhea, she reports this is not a new thing. Pt felt very nauseous and had dry heaving after each administration of Dilaudid, spoke with Dr. Cunningham, changed to Morphine. Discussed this with the patient. IVF infusing without issues. Pt continues to feel bad. Sponges provided for mouth dryness. Call light within reach.
[2020-06-24 19:20] VITALS: BP 127/59; PULSE 83; TEMP 97.6
[2020-06-25 00:19] VITALS: BP 112/62; PULSE 74; TEMP 98.1
[2020-06-25 04:16] VITALS: BP 109/56; PULSE 71; TEMP 97.9
[2020-06-25 06:50] LABS: ALBUMIN 2.6 gm/dL (3.5-5.0); BILIRUBIN,TOTAL 0.2 mg/dL (0.0-1.0); CALCIUM 8.1 mg/dL (8.4-10.2); CREATININE, serum 0.55 (0.52-1.25); MAGNESIUM 1.9 mg/dL (1.6-2.3); PHOSPHOROUS 1.3 mg/dL (2.5-4.5); TOTAL PROTEIN 5.2 gm/dL (6.4-8.2)
[2020-06-25 06:53] LABS: POTASSIUM 2.9 mmol/L (3.4-5.0)
[2020-06-25 07:05] LABS: MEAN CORPUSCULAR HGB CONC 28 g/dl (33.0-37.0); MEAN PLATELET VOLUME 9.9 fl (7.4-10.4); REDCELL DISTRIBUTION WIDTH-CV 14.9 % (11.5-14.5)
[2020-06-25 07:16] VITALS: BP 124/64; PULSE 67; TEMP 98
--- NOTE | 2020-06-25 07:19 | NUR ---
DR. STOKES NOTIFIED OF PATIENTS CRITICAL POTASSIUM LEVEL. NEW ORDER TO PUT HER ON POTASSIUM PROTOCOL.
[2020-06-25 07:45] LABS: HEMATOCRIT 29.5 % (37.0-47.0); HEMOGLOBIN 8.2 g/dl (12.5-16.0); MEAN CELL VOLUME 148 fl (80.0-100.0); MEAN CORPUSCULAR HEMOGLOBIN 41 pg (27.0-31.0)
[2020-06-25 07:46] LABS: PLATELET COUNT 289 K/mm3 (130-400)
--- NOTE | 2020-06-25 08:45 | NUR ---
Shift assessment complete. Pt resting w/eyes closed upon entry. Continues to report severe abdominal pain following morphine administration. Abdomen soft, nondistended, denies tenderness. Bowel sounds hypoactive all quadrants. Heart RRR. Lungs CTA. A&Ox4. Denies needs at this time. Call light in reach.
[2020-06-25 09:29] LABS: ANISOCYTOSIS 1+; BAND 3 % (0-10); BASOPHIL 1 % (0-2); LYMPHOCYTE 12 % (20.0-51.0); NEUTROPHILS 82 % (42.0-75.2)
[2020-06-25 11:44] VITALS: BP 123/73; PULSE 73; TEMP 97.7
[2020-06-25 16:25] VITALS: BP 120/72; PULSE 71; TEMP 97.9
[2020-06-25 19:32] VITALS: BP 112/71; PULSE 71; TEMP 97.7
--- NOTE | 2020-06-25 20:30 | NUR ---
Initial shift assessment done- VSS, was just given Morphine IV at shift change-- states her abd pain is about 7/10, Tele on, IV fluids of LR at 75cc/hr,, taking clear liquids without nausea,, Blood sugar stable at 105. Patient falls right back to sleep when I leave the room.
[2020-06-26] VITALS: BP 126/62; PULSE 73; TEMP 98.2
[2020-06-26 03:50] VITALS: BP 138/74; PULSE 72; TEMP 97.8
--- NOTE | 2020-06-26 04:53 | NUR ---
Quiet night- Medicated for abd pain at IL- has not requested any additional pain meds since then,, blood sugar 72-- is eating some jello at this time, plesant, no other requests.
[2020-06-26 07:18] LABS: MEAN CORPUSCULAR HGB CONC 31 g/dl (33.0-37.0); MEAN PLATELET VOLUME 9.9 fl (7.4-10.4); PLATELET COUNT 236 K/mm3 (130-400); RED BLOOD COUNT 1.89 M/mm3 (4.10-5.30)
--- NOTE | 2020-06-26 07:25 | NUR ---
RA SPO2 85% ASLEEEP PLACED ON 1 LPM NC 91%
[2020-06-26 07:30] LABS: ALBUMIN 2.7 gm/dL (3.5-5.0); BILIRUBIN,TOTAL 0.1 mg/dL (0.0-1.0); CALCIUM 8.3 mg/dL (8.4-10.2); CREATININE, serum 0.51 (0.52-1.25); MAGNESIUM 1.8 mg/dL (1.6-2.3); POTASSIUM 3.5 mmol/L (3.4-5.0); TOTAL PROTEIN 5.1 gm/dL (6.4-8.2)
[2020-06-26 07:33] LABS: HEMATOCRIT 24.3 % (37.0-47.0); HEMOGLOBIN 7.5 g/dl (12.5-16.0); MEAN CELL VOLUME 129 fl (80.0-100.0); MEAN CORPUSCULAR HEMOGLOBIN 40 pg (27.0-31.0)
--- NOTE | 2020-06-26 08:30 | NUR ---
Shift assessment complete. Continues to report moderate to severe abdominal pain but is requesting pain medications less frequently. Report some bloating and mild nausea this AM, zofran given. Tolerating clear liquids well. Abdomen soft, nontender, non-distended. Bowel sounds hypoactive all quadrants. A&Ox4. Heart RRR. Lungs CTA. Denies other needs. Call light in reach.
[2020-06-26 08:31] LABS: EOSINOPHIL 1 % (0-4); LYMPHOCYTE 19 % (20.0-51.0); MYELOCYTE 1 % (0-0); NEUTROPHILS 73 % (42.0-75.2); PLATELET ESTIMATE NORMAL (NORMAL)
[2020-06-26 08:33] LABS: HYPOCHROMIA 2+
[2020-06-26 08:54] VITALS: BP 138/72; PULSE 71; TEMP 98
[2020-06-26 12:30] VITALS: BP 140/70; PULSE 63; TEMP 98
[2020-06-26 16:34] VITALS: BP 136/72; PULSE 62; TEMP 98
--- NOTE | 2020-06-26 16:45 | NUR ---
Nurse aid notified this RN that pt's O2 sats 84% RA, pt sleeping at the time. Rechecked sats and found to be 81%, still asleep. Pt roused to touch but still sleepy. Placed NC on at 2 lpm, pt alert at this time. Sats increased to 90%. Continued to monitor on 2 lpm for 5 minutes w/sats remaining stable at 90%.
--- NOTE | 2020-06-26 20:00 | NUR ---
Assessment complete. Patient is resting in bed, slightly drowsy and but oriented x4. She complains of abdominal pain 8/10 and 2mg morphine is administered. Heart sounds are normal/regular with a rate of 67 bpm. Lungs are clear with diminished bases. No edema is noted. No new concerns from patient; call light in reach.
[2020-06-27 00:15] VITALS: BP 118/84; PULSE 69; TEMP 97.8
[2020-06-27 03:42] VITALS: BP 124/60; PULSE 72; TEMP 97.9
[2020-06-27 07:45] LABS: BASO % 0.1 % (0.0-2.0); EOS # 0.1 (0.0-0.7); EOS % 1.9 % (0-4.0); GRAN # 4.4 (1.4-6.5); GRAN % 64.9 % (42.2-75.2); LYMPH # 1.5 (1.2-3.4); MEAN CELL VOLUME 129 fl (80.0-100.0); MEAN CORPUSCULAR HGB CONC 31 g/dl (33.0-37.0); MEAN PLATELET VOLUME 10.2 fl (7.4-10.4); MONO # 0.6 (0.1-0.6); MONO % 9.1 % (1.7-9.3); PLATELET COUNT 227 K/mm3 (130-400); RED BLOOD COUNT 1.99 M/mm3 (4.10-5.30); REDCELL DISTRIBUTION WIDTH-CV 14.2 % (11.5-14.5)
[2020-06-27 07:48] LABS: HEMATOCRIT 25.6 % (37.0-47.0); HEMOGLOBIN 7.8 g/dl (12.5-16.0); MEAN CORPUSCULAR HEMOGLOBIN 39 pg (27.0-31.0)
[2020-06-27 07:50] LABS: ALANINE AMINOTRANSFERASE 21 U/L (4-34); ALBUMIN 2.6 gm/dL (3.5-5.0); ALKALINE PHOSPHATASE 115 U/L (50-136); ANION GAP 4 mmol/L (7-16); AST,SGOT 43 U/L (15-37); BILIRUBIN,TOTAL < 0.1 mg/dL (0.0-1.0); CALCIUM 8.1 mg/dL (8.4-10.2); CARBON DIOXIDE 26 mmol/L (22-30); CHLORIDE 112 mmol/L (98-107); CREATININE, serum 0.51 (0.52-1.25); GLUCOSE 77 mg/dL (74-106); MAGNESIUM 1.7 mg/dL (1.6-2.3); PHOSPHOROUS 1.9 mg/dL (2.5-4.5); POTASSIUM 3.5 mmol/L (3.4-5.0); SODIUM 142 mmol/L (137-145)
[2020-06-27 07:51] LABS: BLOOD UREA NITROGEN < 2 mg/dL (7-17)
[2020-06-27 07:55] VITALS: BP 127/79; PULSE 66; TEMP 98
[2020-06-27] MEDS ORDERED: OMNICEF 300MG300 MG PO (08:54)
[2020-06-27] MEDS ORDERED: LEXAPRO 10MG10 MG PO (08:57)
[2020-06-27] MEDS ORDERED: NORCO 325 MG-51 TAB PO (08:58)
--- NOTE | 2020-06-27 09:30 | NUR ---
Assessment completed, alert/oriented, vital signs stable, abd pain is still present but improved sence admission, denies any N/V today and is eating breafast at this time, abd is soft and BS +, labs improving, replacing K+ per protocol, has been by and is planning to send patient home today with PO abx
--- NOTE | 2020-06-27 10:59 | NUR ---
The patient is ready to d/c today. DEBO met with the patient and her boyfriend and informed her of [facility]'s acceptance. The patient was still agreeable to home health. DEBO presented and read the form outloud to her. The patient verbalized understanding and gave DEBO approval to sign the form on her behalf. The patient is to discharge back home with her boyfriend today, 06/27, with home health services for fdc/PT/OT from [facility]. DEBO notified and faxed d/c orders to Hawa at [facility]. No additional needs at this time.
[2020-06-27 11:34] VITALS: BP 124/78; PULSE 70; TEMP 97.6
--- NOTE | 2020-06-27 13:37 | NUR ---
Discharge instructions reveiwed with the patient and her , instructed to follow up with PCP and GI as scheduled, discussed meds and instructe dto finish ABX course, meds sent to [facility] for her, post PICC line care discussed as well, tele removed, MATERIAL ENGINEER escorting patient out by wheelchair
== END 2020-06-27 13:39 | disposition home or self-care (01) | DRG 871 ==
LOC: COL.ER 05:34 → MEDICAL 08:20
PROVIDERS: Emergency Medicine; Family Medicine; Physician Assistant; ADMIT Internal Medicine
PROC: 02HV33Z Insertion of Infusion Device into Superior Vena Cava, Percutaneous Approach (ICD-10-PCS; principal; 2020-06-24)
DX: A41.9 Sepsis, unspecified organism (principal); K85.92 Acute pancreatitis with infected necrosis, unspecified; E87.2 Acidosis; L88 Pyoderma gangrenosum; D84.9 Immunodeficiency, unspecified; F41.9 Anxiety disorder, unspecified; E87.6 Hypokalemia; E83.39 Other disorders of phosphorus metabolism; F32.9 Major depressive disorder, single episode, unspecified; G47.00 Insomnia, unspecified; G89.29 Other chronic pain; K29.70 Gastritis, unspecified, without bleeding; K21.00 Gastro-esophageal reflux disease with esophagitis, without bleeding; R19.7 Diarrhea, unspecified; R00.9 Unspecified abnormalities of heart beat; D53.9 Nutritional anemia, unspecified; N28.89 Other specified disorders of kidney and ureter; E16.2 Hypoglycemia, unspecified; F17.210 Nicotine dependence, cigarettes, uncomplicated; Z96.21 Cochlear implant status; Z88.2 Allergy status to sulfonamides; Z88.1 Allergy status to other antibiotic agents; Z88.8 Allergy status to other drugs, medicaments and biological substances
CPT/HCPCS: 99223-AI; 99232-AI; 99233-AI; 99239; C1751; J1170; J1650; J2270; J2405; J2543; J3480; J7030; J7050; J7120; Q9967